=== PATIENT | female | born 1995 | race Caucasian/White ===

== ENCOUNTER 2023-07-14 11:43 | Outpatient (OUT) | payer MEDICAID, SELFPAY ==
[2023-07-14 12:17] LABS: Basophils Absolute Auto 0.1 10^3/uL (0.0-0.1); Basophils Percent Auto 0.6 % (0.2-2.0); Eosinophils Absolute Auto 0.1 10^3/uL (0.0-0.7); Eosinophils Percent Auto 0.7 % (0.9-7.0); Hematocrit 42.6 % (36.0-48.0); Hemoglobin 14.4 g/dL (12.0-16.0); Immature Granulocytes Abs Auto 0.02 10^3/uL (0.00-0.03); Immature Granulocytes Pct Auto 0.2 % (0.0-0.5); Lymphocytes Absolute Auto 3.6 10^3/uL (1.2-3.8); Lymphocytes Percent Auto 35.7 % (20.5-60.0); Mean Corpuscular HGB Conc 33.8 g/dL (29.9-35.2); Mean Corpuscular Hemoglobin 33.1 pg (26.7-34.0); Mean Corpuscular Volume 97.9 fL (81.0-99.0); Mean Platelet Volume 8.8 fL (9.5-13.5); Monocytes Absolute Auto 0.5 10^3/uL (0.3-0.8); Monocytes Percent Auto 4.9 % (1.7-12.0); Neutrophils Absolute Auto 5.9 10^3/uL (1.4-6.5); Neutrophils Percent Auto 57.9 % (43.0-75.0); Platelet Count 265 10^3/uL (150-450); Red Blood Count 4.35 10^6/uL (4.20-5.40); Red Cell Distribution Width 11.7 % (11.0-15.0); White Blood Count 10.1 10^3/uL (4.0-11.0)
[2023-07-14 12:40] LABS: Estimated Average Glucose 108 mg/dL; Glycohemoglobin A1C 5.4 % (4.5-6.2)
[2023-07-14 13:07] LABS: Alanine Aminotransferase 31 U/L (14-59); Albumin Globulin Ratio 0.8; Albumin Level 3.6 g/dL (3.4-5.0); Alkaline Phosphatase 53 U/L (46-116); Anion Gap 16.1; Aspartate Amino Transferase 17 U/L (15-37); BUN Creatinine Ratio 13.2; Bilirubin Total 0.2 mg/dL (0.2-1.0); Calcium 8.5 mg/dL (8.5-10.1); Carbon Dioxide 26.6 mmol/L (21.0-32.0); Chloride 103 mmol/L (98-107); Estimated GFR (African America >60 (>=60); Estimated GFR (Non-African Ame >60 (>=60); Globulin 4.3 g/dL; Glucose 93 mg/dL (74-106); Potassium 4.7 mmol/L (3.5-5.1); Sodium 141 mmol/L (136-145); Thyroid Stimulating Hormone 0.917 uIU/mL (0.358-3.740); Total Protein 7.9 g/dL (6.4-8.2)
[2023-07-15 11:09] LABS: Insulin 43.1 uIU/mL (2.6-24.9)
== END 2023-07-14 11:44 | disposition home or self-care (01) ==
PROVIDERS: PCP Family Medicine; Visit Provider Family Medicine
DX: K58.9 Irritable bowel syndrome, unspecified (principal); R73.09 Other abnormal glucose
CPT/HCPCS: 36415; 80053; 83036; 83525; 84436; 84443; 84481; 85025

== ENCOUNTER 2023-09-26 11:00 | Outpatient (REF) | payer MEDICAID, SELFPAY ==
--- OUTSIDE RECORDS SUMMARY | 2023-09-27 16:28 | XMS_ITS | CCD ---
Author Name Unknown Address [address] [place] [address] [place] [id number] Organization [facility] Care Team Providers Care Entry Level Web Developer Name Role Phone RICKY ., DR MENDEZ Attending Unavailable RICKY ., DR MENDEZ Consulting Unavailable RICKY Stout, DR MENDEZ Primary Care Unavailable RICKY Stout, DR MENDEZ Admitting Unavailable Luis DAY Attending Unavailable Vanessa García MD Primary Care Provider [phone] Medications Current Medications Medication Drug Class(es) Dates Sig (Normalized) Sig (Original) citalopram 10 mg oral tablet (2 sources) Serotonin Reuptake Inhibitor take 1 tablet by mouth in the morning citalopram (CeleXA) 10 mg tablet Take 1 tablet (10 mg total) by mouth in the morning. 0 Active Ethinyl Estradiol / Levonorgestrel (3 sources) Progestin, Estrogen, Progestin-containi ng Intrauterine Device Start: 09-25-2023 take 1 tablet by mouth once in the morning levonorgestreL-et hinyl estrad (AVIANE,ALESSE,LE SSINA) 0.1-20 mg-mcg per tablet Indications: Encounter for control pills maintenance Take 1 tablet by mouth in the morning. 28 tablet 0 09/25/2023 Active Start: 09-15-2022 End: 09-25-2023 take 1 tablet by mouth once in the morning levonorgestreL-ethinyl estrad (AVIANE,ALESSE,LESSINA) 0.1-20 mg-mcg per tablet Indications: Encounter for control pills maintenance Take 1 tablet by mouth in the morning. 28 tablet 12 09/15/2022 09/25/2023 Discontinued (Reorder) hydrOXYzine hydrochloride 25 mg oral tablet (2 sources) Antihistamine Start: 08-12-2022 hydrOXYzine (A TARAX) 25 mg tablet TAKE 1 TABLET BY MOUTH EVERY 6 TO 8 HOURS 0 08/12/2022 Active Problems Active Problems Problem Classification Problem Date Documented Date Episodic/Chronic Contraceptive and procreative management (1 source) Oral contraception status; Translations: [Encounter for surveillance of contraceptive pills] 09-25-2023 Episodic Deficiency and other anemia (1 source) Anemia, unspecified; Translations: [ANEMIA UNSPECIFIED] Onset: 01-03-2023 Episodic Diabetes mellitus without complication (1 source) Other abnormal glucose; Translations: [OTHER ABNORMAL GLUCOSE] Onset: 01-03-2023 Episodic Other nutritional; endocrine; and metabolic disorders (2 sources) Body mass index 40+ - severely obese; Translations: [Body mass index (BMI) 40.0-44.9, adult] Onset: 09-15-2022 09-15-2022 Chronic Past or Other Problems Problem Classification Problem Date Documented Da te Episodic/Chronic Unclassified (2 sources) Onset: 09-15-2022 09-15-2022 Results Test Name Value Interpretation Reference Range Facil ity Physician Referralon 024 Physician Referral [id number] #[id number] Normal [facility] INSULINon 12-30-2022 Insulin 142.0 uIU/mL Critically high 2.6-24.9 [facility] Comment on above: Performed By: #### I NSULIN #### [facility] [address] [place] [address] Dr. Jason Herrera CBC AUTO DIFFon 12-28-2022 BASO # 0.1 103/ul Normal 0.0-0.1 [facility] Comment on above: Performed By: #### C BC #### [facility] [address] [address] [address] Jason Herrera Basophils/100 WBC (Bld) 0.6 % Normal 0.2-2.0 [facility] Comment on above: Performed By: #### C BC #### [facility] [address] [address] [address] Jason Herrera EO # 0.1 103/ul Normal 0.0-0.7 [facility] Comment on above: Performed By: #### C BC #### [facility] [address] [place] [address] Dr. Jason Herrera Eosinophils/100 WBC (Bld) 0.6 % Critically low 0.9-7.0 [facility] Comment on above: Performed By: #### C BC #### [facility] [address] [place] [address] Dr. Jason Herrera Erythrocyte distribution width (RBC) [Ratio] 11.9 % Normal 11.0-15.0 [facility] Comment on above: Performed By: #### C BC #### [facility] [address] [place] [address] Dr. Jason Herrera Hematocrit (Bld) [Volume fraction] 42.4 % Normal 36.0-48.0 [facility] Comment on above: Performed By: #### C BC #### [facility] [address] [place] [address] Dr. Jason Herrera Hemoglobin (Bld) [Mass/Vol] 14.5 g/dL Normal 12.0-16.0 [facility] Comment on above: Performed By: #### C BC #### [facility] [address] [place] [address] Dr. Jason Herrera IG # 0.02 10e3/ul Normal 0.00-0.03 [facility] Comment on above: Performed By: #### C BC #### [facility] [address] [place] [address] Dr. Jason Herrera IG % 0.2 % Normal 0.0-0.5 [facility] Comment on above: Performed By: #### C BC #### [facility] [address] [place] [address] Dr. Jason Herrera LYMPH # 3.2 103/ul Normal 1.2-3.8 [facility] Comment on above: Performed By: #### C BC #### [facility] [address] [place] [address] Dr. Jason Herrera Lymphocytes/100 WBC (Bld) 35.7 % Normal 20.5-60.0 [facility] Comment on above: Performed By: #### C BC #### [facility] [address] [place] [address] Dr. Jason Herrera MANUAL DIFF REQ NO Normal [facility] Comment on above: Performed By: #### C BC #### [facility] [address] [place] [address] Dr. Jason Herrera MCH (RBC) [Entitic mass] 32.4 pg Normal 26.7-34.0 [facility] Comment on above: Performed By: #### C BC #### [facility] [address] [place] [address] Dr. Jason Herrera MCHC (RBC) [Mass/Vol] 34.2 g/dL Normal 29.9-35.2 [facility] Comment on above: Performed By: #### C BC #### [facility] [address] [place] [address] Dr. Jason Hererra MCV (RBC) [Entitic vol] 94.9 fL Normal 81.0-99.0 [facility] Comment on above: Performed By: #### C BC #### [facility] [address] [place] [address] Dr. Jason Herrera MONO # 0.4 103/ul Normal 0.3-0.8 [facility] Comment on above: Performed By: #### C BC #### [facility] [address] [place] [address] Dr. Jason Herrera Monocytes/100 WBC (Bld) 4.7 % Normal 1.7-12.0 [facility] Comment on above: Performed By: #### C BC #### [facility] [address] [place] [address] Dr. Jason Herrera NEUT # 5.3 103/ul Normal 1.4-6.5 [facility] Comment on above: Performed By: #### C BC #### [facility] [address] [place] [address] Dr. Jason Herrera Neutrophils/100 WBC (Bld) 58.2 % Normal 43.0-75.0 [facility] Comment on above: Performed By: #### C BC #### [facility] [address] [address] [address] Jason Herrera Platelet mean volume (Bld) [Entitic vol] 8.6 fL Critically low 9.5-13.5 [facility] Comment on above: Performed By: #### C BC #### [facility] [address] [address] [address] Jason Herrera PLT 285 103/ul Normal 150-450 [facility] Comment on above: Performed By: #### C BC #### [facility] [address] [address] [address] Jason Herrera RBC 4.47 106/ul Normal 4.20-5.40 [facility] Comment on above: Performed By: #### C BC #### [facility] [address] [place] [address] Dr. Jason Herrera WBC 9.1 103/ul Normal 4.0-11.0 [facility] Comment on above: Performed By: #### C BC #### [facility] [address] [place] [address] Dr. Jason Herrera FREE THYROXINE INDEX T7on FTI 3.45 Normal 1.30-4.50 [facility] Comment on above: Performed By: #### L IPID, CMP, TSH, T7 #### [facility] [address] [place] [address] Dr. Jason Herrera T3U 29.0 % Critically low 30.0-39.0 [facility] Comment on above: Performed By: #### L IPID, CMP, TSH, T7 #### [facility] [address] [address] [address] Jason Herrera T4 [Mass/Vol] 11.90 ug/dL Normal 4.80-13.90 [facility] Comment on above: Performed By: #### L IPID, CMP, TSH, T7 #### [facility] [address] [place] [address] Dr. Jason Herrera GLYCOHEMOGLOBIN A1Con 2022 ADA RECOMMENDATION SEE BELOW Normal [facility] Comment on above: Result Comment: ADA RECOMMENDED LIMIT 4.0 - 6.0 ADA THERAPEUTIC TARGET < 7.0 ACTION SUGGESTED > 7.0 Performed By: #### A 1C #### [facility] [address] [place] [address] Dr. Jason Herrera Glucose [Mass/Vol] 105 mg/dL Normal [facility] Comment on above: Performed By: #### A 1C #### [facility] [address] [address] [address] Jason Herrera HbA1c (Bld) [Mass fraction] 5.3 % Normal 4.5-6.2 [facility] Comment on above: Performed By: #### A 1C #### [facility] [address] [place] [address] Dr. Jason Herrera IRONon 12-28-2022 Iron [Mass/Vol] 114.0 ug/dL Normal 50.0-170.0 [facility] Comment on above: Performed By: #### I TARYN #### [facility] [address] [place] [address] Dr. Jason Herrera LIPID PROFILEon 12-28-2022 CHOL-HDL RATIO NORM SEE BELOW Normal [facility] Comment on above: Result Comment: 3.3 - 4.4 LOW RISK 4.4 - 7.1 AVERAGE RISK 7.1 - 11.0 MODERATE RISK >11.0 HIGH RISK Performed By: #### L IPID, CMP, TSH, T7 #### [facility] [address] [place] [address] Dr. Jason Herrera Cholesterol [Mass/Vol] 172 mg/dL Normal <=200 [facility] Comment on above: Performed By: #### L IPID, CMP, TSH, T7 #### [facility] [address] [address] [address] Jason Herrera Cholesterol in HDL [Mass/Vol] 34 mg/dL Critically low 40-60 [facility] Comment on above: Performed By: #### L IPID, CMP, TSH, T7 #### [facility] [address] [address] [address] Jason Herrera Cholesterol in LDL [Mass/Vol] 105.6 mg/dL Normal [facility] Comment on above: Performed By: #### L IPID, CMP, TSH, T7 #### [facility] [address] [address] [address] Jason Herrera Cholesterol.total/Cho lesterol in HDL [Mass ratio] 5.1 {ratio} Normal [facility] Comment on above: Performed By: #### L IPID, CMP, TSH, T7 #### [facility] [address] [address] [address] Jason Herrera HDL NORMAL > or = 60 mg/dl - LOW CARDIOVASCULAR RISK <40 mg/dl - HIGH CARDIOVASCULAR RISK Normal [facility] Comment on above: Performed By: #### L IPID, CMP, TSH, T7 #### [facility] [address] [address] [address] Jason Herrera LDL CALC NORMAL SEE BELOW Normal [facility] Comment on above: Result Comment: <100 mg/dl OPTIMAL 100 - 129 mg/dl NEAR OR ABOVE OPTIMAL 130 - 159 mg/dl BORDERLINE HIGH 160 - 189 mg/dl HIGH >190 mg/dl VERY HIGH Performed By: #### L IPID, CMP, TSH, T7 #### [facility] [address] [address] [address] Jason Herrera Triglyceride [Mass/Vol] 162 mg/dL Critically high <=150 [facility] Comment on above: Performed By: #### L IPID, CMP, TSH, T7 #### [facility] [address] [address] [address] Jason Herrera VLDL CALC 32.4 mg/dL Normal [facility] Comment on above: Performed By: #### L IPID, CMP, TSH, T7 #### [facility] [address] [address] [address] Jason Herrera PROF 14(COMP METB)on 023 Albumin [Mass/Vol] 3.9 g/dL Normal 3.4-5.0 [facility] Comment on above: Performed By: #### L IPID, CMP, TSH, T7 #### [facility] [address] [address] [address] Jason Herrera Albumin/Globulin [Mass ratio] 0.9 {ratio} Normal [facility] Comment on above: Performed By: #### L IPID, CMP, TSH, T7 #### [facility] [address] [place] [address] Dr. Jason Herrera ALP [Catalytic activity/Vol] 48 U/L Normal 46-116 [facility] Comment on above: Performed By: #### L IPID, CMP, TSH, T7 #### [facility] [address] [address] [address] Jason Herrera ALT [Catalytic activity/Vol] 58 U/L Normal 14-59 [facility] Comment on above: Performed By: #### L IPID, CMP, TSH, T7 #### [facility] [address] [place] [address] Dr. Jason Herrera Anion gap [Moles/Vol] 12.4 mmol/L Normal [facility] Comment on above: Performed By: #### L IPID, CMP, TSH, T7 #### [facility] [address] [place] [address] Dr. Jason Herrera AST [Catalytic activity/Vol] 35 U/L Normal 15-37 [facility] Comment on above: Performed By: #### L IPID, CMP, TSH, T7 #### [facility] [address] [place] [address] Dr. Jason Herrera Bilirubin [Mass/Vol] 0.2 mg/dL Normal 0.2-1.0 [facility] Comment on above: Performed By: #### L IPID, CMP, TSH, T7 #### [facility] [address] [place] [address] Dr. Jason Herrera Calcium [Mass/Vol] 9.0 mg/dL Normal 8.5-10.1 [facility] Comment on above: Performed By: #### L IPID, CMP, TSH, T7 #### [facility] [address] [place] [address] Dr. Jason Herrera Chloride [Moles/Vol] 107 mmol/L Normal 98-107 [facility] Comment on above: Performed By: #### L IPID, CMP, TSH, T7 #### [facility] [address] [address] [address] Jason Herrera CO2 [Moles/Vol] 25.9 mmol/L Normal 21.0-32.0 [facility] Comment on above: Performed By: #### L IPID, CMP, TSH, T7 #### [facility] [address] [address] [address] Jason Herrera Creatinine [Mass/Vol] 0.72 mg/dL Normal 0.55-1.02 [facility] Comment on above: Performed By: #### L IPID, CMP, TSH, T7 #### [facility] [address] [address] [address] Jason Herrera EGFR-AF BAHAMIAN >60 Normal >=60 [facility] Comment on above: Performed By: #### L IPID, CMP, TSH, T7 #### [facility] [address] [address] [address] Jason Herrera EGFR-NON AF BAHAMIAN >60 Normal >=60 [facility] Comment on above: Performed By: #### L IPID, CMP, TSH, T7 #### [facility] [address] [address] [address] Jason Herrera Globulin (S) [Mass/Vol] 4.3 g/dL Normal [facility] Comment on above: Performed By: #### L IPID, CMP, TSH, T7 #### [facility] [address] [address] [address] Jason Herrera Glucose [Mass/Vol] 103 mg/dL Normal 74-106 [facility] Comment on above: Performed By: #### L IPID, CMP, TSH, T7 #### [facility] [address] [address] [address] Jason Herrera Potassium [Moles/Vol] 4.3 mmol/L Normal 3.5-5.1 [facility] Comment on above: Performed By: #### L IPID, CMP, TSH, T7 #### [facility] [address] [address] [address] Jason Herrera Protein [Mass/Vol] 8.2 g/dL Normal 6.4-8.2 [facility] Comment on above: Performed By: #### L IPID, CMP, TSH, T7 #### [facility] [address] [address] [address] Jason Herrera Sodium [Moles/Vol] 141 mmol/L Normal 136-[address] [facility] Comment on above: Performed By: #### L IPID, CMP, TSH, T7 #### [facility] [address] [address] [address] Jason Herrera Urea nitrogen [Mass/Vol] 9.0 mg/dL Normal 7.0-18.0 [facility] Comment on above: Performed By: #### L IPID, CMP, TSH, T7 #### [facility] [address] [place] [address] Dr. Jason Herrera Urea nitrogen/Creatinine [Mass ratio] 12.5 mg/mg Normal [facility] Comment on above: Performed By: #### L IPID, CMP, TSH, T7 #### [facility] [address] [address] [address] Jason Herrera TSHon 12-28-2022 TSH 0.365 uIU/mL Normal 0.358-3.740 [facility] Comment on above: Performed By: #### L IPID, CMP, TSH, T7 #### [facility] [address] [place] [address] Dr. Jason Herrera Encounters Encounter Date Encounter Type Care Provider Facility Start: 10-24-2023 ambulatory Luis DAY Facility : [facility] Start: 09-25-2023 Orders Only Selam Thompson CRYSTAL ATTACHER-MATERIALS AND CORROSION ENGINEER Work Phone: [facility] Comment on above: Encounter for control pills maintenance Start: 09-21-2023 ambulatory Luis DAY Facility: [facility] Start: 09-19-2023 ambulatory Luis DAY Facility:[facility] Start: 01-03-2023 Encounter for genera l adult medical examination without abnormal findings DR VANESSA GARCÍA . [facility] Start: 12-28-2022 End: 12-29-[address] VANESSA GARCÍA . Facility: Start: 12-28-2022 End: 12-29-2022 Encounter for general adult medical examination without abnormal findings DR VANESSA GARCÍA . Facility:[facility] Procedures Date Procedure Procedure Detail Performing Clinician Start: 03-30-2021 Microscopic observat ion [Identifier] in Cervix by Cyto stain Selam Thompson APRN-MATERIALS AND CORROSION ENGINEER Work Phone: Plan of Treatment Date Care Activity Detail Author Start: 08-01-2033 DTaP,Tdap and Td Vaccines (7 - Td or Tdap) DTaP,Tdap and Td Vaccines (7 - Td or Tdap) [facility] Start: 08-01-2024 Adult BMI Screening Adult BMI Screen ing [facility] Start: 08-01-2024 Tobacco Screening Tobacco Screening [facility] Start: 03-30-2024 Screening for malign ant neoplasm of cervix Pap Smear [facility] Start: 09-15-2023 Adult BMI Follow Up Plan Adult BMI Follow Up Plan [facility] Start: 04-28-2023 Influenza vaccination Influenza Vacc ine [facility] Start: 2007 Depression Screening Depression Scre ening [facility] Immunizations Immunization Date Immunization Notes Care Provider Fa cility 08-01-2023 tetanus toxoid, redu catie diphtheria toxoid, and acellular pertussis vaccine, adsorbed Selam Thompson APRN-MATERIALS AND CORROSION ENGINEER Work Phone: [facility] 05-26-2021 influenza virus vaccine, unspecified formulation Selam Thompson APRN-MATERIALS AND CORROSION ENGINEER Work Phone: [facility] Payers Date Payer Category Payer Medicaid [employer] [facility] MEDICAID [id number] 2022-Present [phone] [address] [address] [place] [address] [id number] 1995 Unknown [id number] 1995 Unknown [id number] 1995 Unknown [id number] 1959 Private Health Insurance [id number] Social History Date Type Detail Facility [facility]: [facility] Start: 09-15-2022 Tobacco use and exposure Smokeless tobacco non-user [facility] Start: 08-01-2023 Alcohol intake Current drinke r of alcohol (finding) [facility] Start: 10-07-2020 End: 08-01-2023 History of Social function [facility] Start: 10-07-2020 End: 08-01-2023 Tobacco use panel [facility] Childcare Unknown [facility] Start: 03-30-2021 Alcohol Comment occasionally [facility] Start: 1995 Sex Assigned At Not on file P [facility] Note 09-25-2023 Telephone Encounter - María Cadena - 09/25/2023 3:18 PM ESTTelephone Encounter - JOY Pinedo - 09/25/2023 3:18 PM ESTTelephone Encounter - María Cadena - 09/25/2023 3:18 PM EST Note Date & Type Note Facility 09-25-2023 Miscellaneous Notes Formattin g of this note might be different from the original. Pt is requesting 1 month BC refill. Pt had Annual appointment scheduled with this Office on 09/21/23, but cancelled due to insurance being [id number]. Pt has appointment with new Provider, but not until October. Please advise. Thank you RX sent to pharmacy LVM advising RX sent to Pharmacy. documented in this encounter [facility] Telephone encounter Note 09-25-2023 Telephone Encounter - María Vazquezetz - 09/25/2023 3:18 PM EST Note Date & Type Note Facility 09-25-2023 Telephone encount er Note Pt is requesting 1 month BC refill. Pt had Annual appointment scheduled with this Office on 09/21/23, but cancelled due to insurance being [id number]. Pt has appointment with new Provider, but not until October. Please advise. Thank you [facility] Telephone encounter Note 09-25-2023 Telephone Encounter - JOY Pinedo - 09/25/2023 3:18 PM EST Note Date & Type Note Facility 09-25-2023 Telephone encount er Note RX sent to pharmacy [facility] Telephone encounter Note 09-25-2023 Telephone Encounter - María Cadena - 09/25/2023 3:18 PM EST Note Date & Type Note Facility 09-25-2023 Telephone encount er Note LVM advising RX sent to Pharmacy. [facility] Evaluation note Note Date & Type Note Facility Evaluation note Diagnosis Encounter for control pills maintenance Surveillance of previously prescribed contraceptive pill documented in this encounter [facility] Instructions Note Date & Type Note Facility Instructions Not on filedocumented in this en counter [facility] Summary Purpose Family History No Family History Records FoundNo Family History Records Found Advance Directives No Advanced Directives Records FoundNo Advanced Directives Records Found Additional Source Comments INFORMATION SOURCE (unrecogn ized section and content) DATE CREATED AUTHOR 01/04/2023 [facility] DATE CREATED AUTHOR AUTHOR'S ORGANIZ ATION 09/25/2023 Max Caputo [facility] Care Teams (unrecognized sec tion and content) Entry Level Web Developer Relationship Specialty Start Date End Date Vanessa García MD [address] [place] [address] PCP - General 08/01/23 FOR RECORDS PERTAINING TO PATIENTS WHO ARE OR HAVE BEEN ENROLLED IN A CHEMICAL DEPENDENCY/SUBSTANCEABUSE PROGRAM, SOME INFORMATION MAY BE OMITTED. This clinical summary was aggregated from multiple sources. Caution should be exercised in using it in the provision of clinical care. This summary normalizes information from multiple sources, and as a consequence, information in this document may materially change the coding, format and clinical context of patient data. In addition, data may be omitted in some cases. CLINICAL DECISIONS SHOULD BE BASED ON THE PRIMARY CLINICAL RECORDS. [facility] [employer] [facility]. provides no warranty or guarantee of the accuracy or completeness of information in this document.
[2023-09-28 15:12] LABS: C. Difficile PCR NEGATIVE (NEGATIVE)
== END 2023-09-26 11:01 | disposition home or self-care (01) ==
LOC: LAB 11:00
PROVIDERS: PCP Family Medicine; Visit Provider Family Medicine
DX: R19.7 Diarrhea, unspecified (principal)
CPT/HCPCS: 87045; 87493

== ENCOUNTER 2023-11-02 19:46 | Outpatient (REF) | payer MEDICAID, SELFPAY ==
--- OUTSIDE RECORDS SUMMARY | 2023-11-02 19:49 | XMS_ITS | CCD ---
Author Name Unknown Address [facility] Con[facility] [address] [place] [address] Organization [facility] Care Team Providers Care Calculus Professor Name Role Phone RICKY ., DR MENDEZ Attending Unavailable RICKY ., DR MENDEZ Consulting Unavailable RICKY Stout, DR MENDEZ Primary Care Unavailable RICKY Stout, DR MENDEZ Admitting Unavailable Vanessa García MD Primary Care Provider [phone] Vanessa García Primary Care Physician Luis DAY Attending Unavailable Luis DAY Attending Unavailable Allergies Allergy Classification Reported Allergen(s) Allergy Type Date of Onset Reaction(s) Facility (1 source) No Known Medication Allergies; Translations: [No Known Medication Allergies] Propensity to adverse reactions (disorder) [facility] Repository Medications Current Medications Medication Drug Class(es) Dates Sig (Normalized) Sig (Original) Ethinyl Estradiol / Levonorgestrel (3 sources) Progestin, [...] 28 tablet 12 09/15/2022 09/25/2023 Discontinued (Reorder) Completed/Discontinued Medications Medication Drug Class(es) Dates Sig (Normalized) Sig (Original) citalopram 10 mg oral tablet (3 sources) Serotonin Reuptake Inhibitor Start: 12-27-2022 take 1 tablet by mouth once daily hydrOXYzine hydrochloride 25 mg oral tablet (3 sources) Antihistamine Start: 10-09-2023 take 1 tablet by mouth every eight hours as needed Start: 08-12-2022 hydrOXYzine (A TARAX) 25 mg tablet TAKE 1 TABLET BY MOUTH EVERY 6 TO 8 HOURS 0 08/12/2022 Active Problems Active Problems Problem Classification Problem Date Documented Da te Episodic/Chronic Allergic reactions (1 source) Eczema 10-09-2023 Episodic Contraceptive and procreative management (1 source) Oral contraception status; Translations: [Encounter for surveillance of contraceptive pills] 09-25-2023 Episodic Deficiency and other anemia (1 source) Anemia, unspecified; Translations: [ANEMIA UNSPECIFIED] Onset: 01-03-2023 Episodic Diabetes mellitus without complication (1 source) Other abnormal glucose; Translations: [OTHER ABNORMAL GLUCOSE] Onset: 01-03-2023 Episodic Other gastrointestinal disorders (1 source) Irritable bowel syndrome 10-09-2023 Chronic Other gastrointestinal disorders (2 sources) Diarrhea; Translations: [Diarrhea, unspecified] Onset: 10-24-2023 Episodic Other gastrointestinal disorders (1 source) Loose stool 10-09-2023 Episodic Other nutritional; endocrine; and metabolic disorders (3 sources) Body mass index 40+ - severely obese; Translations: [Body mass index (BMI) 40.0-44.9, adult] Onset: 09-15-2022 09-15-2022 Chronic Other nutritional; endocrine; and metabolic disorders (1 source) Morbid obesity 10-24-2023 Chronic Other upper respiratory disease (1 source) Seasonal allergic rhinitis 10-09-2023 Chronic Past or Other Problems Problem Classification Problem Date Documented Da te Episodic/Chronic Unclassified (2 sources) Onset: 09-15-2022 09-15-2022 Results Test Name Value Interpretation Reference Range Facil ity Consent for Procedure/Surger yon 10-25-2023 Consent for Procedure/Surgery [id number] 2#1.00TIFF Normal [facility] Facesheeton 10-25-2023 Facesheet [id number] 4#1.00TIFF [facility] Ambulatory Visit Summaryon 0 10-24-2023 Ambulatory Visit Summary WILLIAMS MOSELEY :1995 Visit Date:10/24/2023 Ambulatory Visit Instructions Your Care Team Attending Physician - SHAY GILMORE, Luis Grullon Primary Care Physician - Vanessa García MD This Is Your Medications List Contact prescribing physician if questions or concerns citalopram (CeleXA 10 mg Tab) hydrOXYzine (hydrOXYzine hydrochloride 25 mg Tab) Procedures Performed None. Discharge Vitals Heart Rate (Peripheral) 72 Respiratory Rate 16 Blood Pressure 124/84 Height 157.48 cm Height 62 in Weight 109 kg Weight 239.8 lb BMI 43.95 Medications What How Much When Instructions Unchanged citalopram (CeleXA 10 mg Tab) 1 Tablets By Mouth Every day 1 Unknown, 0 Refill(s) Contact prescribing physician if questions or concerns Unchanged hydrOXYzine (hydrOXYzine hydrochloride 25 mg Tab) 1 Tablets By Mouth Every 8 hours as needed for as needed for anxiety 1 Unknown, 0 Refill(s) Contact prescribing physician if questions or concerns Medications and Immunizations Administered Not Given influenza virus vaccine, inactivated, Patient Refuses Allergies No Known Allergies No Known Medication Allergies Problems Ongoing - Any problem that you are currently receiving treatment for. BMI 40.0-44.9, adult Eczema Irritable bowel syndrome Loose stools Morbid obesity Seasonal allergic rhinitis Patient Survey You may receive a survey via text or e-mail asking about your office visit. Please share your experience with us by completing your survey. We appreciate your feedback and thank you for choosing us for your care. Normal [facility] Lab Reportson 10-10-2023 Lab Reports [id number] #1.00TIFF [facility] Physician Referralon 024 Physician Referral [id number] #1.00TIFF [facility] INSULINon 12-30-2022 Insulin 142.0 uIU/mL Critically high 2.6-24.9 [facility] Comment on above: Performed By: #### I NSULIN #### [facility] [address] [address] [address] Jason Herrera CBC AUTO DIFFon 12-28-2022 BASO # 0.1 103/ul Normal 0.0-0.1 [facility] Comment on above: Performed By: #### C BC #### [facility] [address] [place] [address] Dr. Jason Herrera Basophils/100 WBC (Bld) 0.6 % Normal 0.2-2.0 [facility] Comment on above: Performed By: #### C BC #### [facility] [address] [place] [address] Dr. Jason Herrera EO # 0.1 103/ul Normal 0.0-0.7 [facility] Comment on above: Performed By: #### C BC #### [facility] [address] [place] [address] Dr. Jason Herrera Eosinophils/100 WBC (Bld) 0.6 % Critically low 0.9-7.0 [facility] Comment on above: Performed By: #### C BC #### [facility] [address] [place] [address] Dr. Jason Herrera Erythrocyte distribution width (RBC) [Ratio] 11.9 % Normal 11.0-15.0 [facility] Comment on above: Performed By: #### C BC #### [facility] [address] [place] [address] Dr. Jason Herrera Hematocrit (Bld) [Volume fraction] 42.4 % Normal 36.0-48.0 [facility] Comment on above: Performed By: #### C BC #### [facility] [address] [place] [address] Dr. Jason Herrera Hemoglobin (Bld) [Mass/Vol] 14.5 g/dL Normal 12.0-16.0 [facility] Comment on above: Performed By: #### C BC #### [facility] [address] [place] [address] Dr. Jason Herrera IG # 0.02 10e3/ul Normal 0.00-0.03 [facility] Comment on above: Performed By: #### C BC #### [facility] [address] [place] [address] Dr. Jason Herrera IG % 0.2 % Normal 0.0-0.5 [facility] Comment on above: Performed By: #### C BC #### [facility] [address] [place] [address] Dr. Jason Herrera LYMPH # 3.2 103/ul Normal 1.2-3.8 [facility] Comment on above: Performed By: #### C BC #### [facility] [address] [place] [address] Dr. Jason Herrera Lymphocytes/100 WBC (Bld) 35.7 % Normal 20.5-60.0 [facility] Comment on above: Performed By: #### C BC #### [facility] [address] [place] [address] Dr. Jason Herrera MANUAL DIFF REQ NO Normal [facility] Comment on above: Performed By: #### C BC #### [facility] [address] [place] [address] Dr. Jason Herrera MCH (RBC) [Entitic mass] 32.4 pg Normal 26.7-34.0 [facility] Comment on above: Performed By: #### C BC #### [facility] [address] [place] [address] Dr. Jason Herrera MCHC (RBC) [Mass/Vol] 34.2 g/dL Normal 29.9-35.2 [facility] Comment on above: Performed By: #### C BC #### [facility] [address] [place] [address] Dr. Jason Herrera MCV (RBC) [Entitic vol] 94.9 fL Normal 81.0-99.0 [facility] Comment on above: Performed By: #### C BC #### [facility] [address] [place] [address] Dr. aJson Herrera MONO # 0.4 103/ul Normal 0.3-0.8 [facility] Comment on above: Performed By: #### C BC #### [facility] [address] [place] [address] Dr. Jason Herrera Monocytes/100 WBC (Bld) 4.7 % Normal 1.7-12.0 [facility] Comment on above: Performed By: #### C BC #### [facility] [address] [place] [address] Dr. Jason Herrera NEUT # 5.3 103/ul Normal 1.4-6.5 [facility] Comment on above: Performed By: #### C BC #### [facility] [address] [place] [address] Dr. Jason Herrera Neutrophils/100 WBC (Bld) 58.2 % Normal 43.0-75.0 [facility] Comment on above: Performed By: #### C BC #### [facility] [address] [place] [address] Dr. Jason Herrera Platelet mean volume (Bld) [Entitic vol] 8.6 fL Critically low 9.5-13.5 [facility] Comment on above: Performed By: #### C BC #### [facility] [address] [place] [address] Dr. Jason Herrera PLT 285 103/ul Normal 150-450 [facility] Comment on above: Performed By: #### C BC #### [facility] [address] [place] [address] Dr. Jason Herrera RBC 4.47 106/ul Normal 4.20-5.40 [facility] Comment on above: Performed By: #### C BC #### [facility] [address] [place] [address] Dr. Jason Herrera WBC 9.1 103/ul Normal 4.0-11.0 [facility] Comment on above: Performed By: #### C BC #### [facility] [address] [place] [address] Dr. Jason Herrera FREE THYROXINE INDEX T7on FTI 3.45 Normal 1.30-4.50 [facility] Comment on above: Performed By: #### L IPID, CMP, TSH, T7 #### [facility] [address] [place] [address] Dr. Jason Herrera T3U 29.0 % Critically low 30.0-39.[address] [facility] Comment on above: Performed By: #### L IPID, CMP, TSH, T7 #### [facility] [address] [address] [address] Jason Herrera T4 [Mass/Vol] 11.90 ug/dL Normal 4.80-13.[address] [facility] Comment on above: Performed By: #### L IPID, CMP, TSH, T7 #### [facility] [address] [address] [address] Jason Herrera GLYCOHEMOGLOBIN A1Con 2022 ADA RECOMMENDATION SEE BELOW Normal [facility] Comment on above: Result Comment: ADA RECOMMENDED LIMIT 4.0 - 6.0 ADA THERAPEUTIC TARGET < 7.0 ACTION SUGGESTED > 7.0 Performed By: #### A 1C #### [facility] [address] [place] [address] Dr. Jason Herrera Glucose [Mass/Vol] 105 mg/dL Normal [facility] Comment on above: Performed By: #### A 1C #### [facility] [address] [place] [address] Dr. Jason Herrera HbA1c (Bld) [Mass fraction] 5.3 % Normal 4.5-6.2 [facility] Comment on above: Performed By: #### A 1C #### [facility] [address] [place] [address] Dr. Jason Herrera IRONon 12-28-2022 Iron [Mass/Vol] 114.0 ug/dL Normal 50.0-170.0 [facility] Comment on above: Performed By: #### I TARYN #### [facility] [address] [place] [address] Dr. Jason Herrera LIPID PROFILEon 12-28-2022 CHOL-HDL RATIO NORM SEE BELOW Normal [facility] Comment on above: Result Comment: 3.3 - 4.4 LOW RISK 4.4 - 7.1 AVERAGE RISK 7.1 - 11.0 MODERATE RISK >11.0 HIGH RISK Performed By: #### L IPID, CMP, TSH, T7 #### [facility] [address] [address] [address] Jason Herrera Cholesterol [Mass/Vol] 172 mg/dL Normal <=200 [facility] Comment on above: Performed By: #### L IPID, CMP, TSH, T7 #### [facility] [address] [address] [address] Jason Herrera Cholesterol in HDL [Mass/Vol] 34 mg/dL Critically low 40-60 [facility] Comment on above: Performed By: #### L IPID, CMP, TSH, T7 #### [facility] [address] [address] [address] Jason Herrera Cholesterol in LDL [Mass/Vol] 105.6 mg/dL Normal [facility] Comment on above: Performed By: #### L IPID, CMP, TSH, T7 #### [facility] [address] [address] [address] Jason Herrera Cholesterol.total/Cho lesterol in HDL [Mass ratio] 5.1 {ratio} Normal [facility] Comment on above: Performed By: #### L IPID, CMP, TSH, T7 #### [facility] [address] [address] [address] Jason Herrera HDL NORMAL > or = 60 mg/dl - LOW CARDIOVASCULAR RISK <40 mg/dl - HIGH CARDIOVASCULAR RISK Normal [facility] Comment on above: Performed By: #### L IPID, CMP, TSH, T7 #### [facility] [address] [address] [address] Jason Herrera LDL CALC NORMAL SEE BELOW Normal [facility] Comment on above: Result Comment: <100 mg/dl OPTIMAL 100 - 129 mg/dl NEAR OR ABOVE OPTIMAL 130 - 159 mg/dl BORDERLINE HIGH 160 - 189 mg/dl HIGH >190 mg/dl VERY HIGH Performed By: #### L IPID, CMP, TSH, T7 #### [facility] [address] [address] [address] Jason Herrera Triglyceride [Mass/Vol] 162 mg/dL Critically high <=150 [facility] Comment on above: Performed By: #### L IPID, CMP, TSH, T7 #### [facility] [address] [address] [address] Jason Herrera VLDL CALC 32.4 mg/dL Normal [facility] Comment on above: Performed By: #### L IPID, CMP, TSH, T7 #### [facility] [address] [place] [address] Dr. Jason Herrera PROF 14(COMP METB)on 023 Albumin [Mass/Vol] 3.9 g/dL Normal 3.4-5.0 [facility] Comment on above: Performed By: #### L IPID, CMP, TSH, T7 #### [facility] [address] [place] [address] Dr. Jason Herrera Albumin/Globulin [Mass ratio] 0.9 {ratio} Normal [facility] Comment on above: Performed By: #### L IPID, CMP, TSH, T7 #### [facility] [address] [place] [address] Dr. Jason Herrera ALP [Catalytic activity/Vol] 48 U/L Normal 46-116 [facility] Comment on above: Performed By: #### L IPID, CMP, TSH, T7 #### [facility] [address] [place] [address] Dr. Jason Herrera ALT [Catalytic activity/Vol] 58 U/L Normal 14-59 [facility] Comment on above: Performed By: #### L IPID, CMP, TSH, T7 #### [facility] [address] [place] [address] Dr. Jason Herrera Anion gap [Moles/Vol] 12.4 mmol/L Normal [facility] Comment on above: Performed By: #### L IPID, CMP, TSH, T7 #### [facility] [address] [place] [address] Dr. Jason Herrera AST [Catalytic activity/Vol] 35 U/L Normal 15-37 [facility] Comment on above: Performed By: #### L IPID, CMP, TSH, T7 #### [facility] [address] [place] [address] Dr. Jason Herrera Bilirubin [Mass/Vol] 0.2 mg/dL Normal 0.2-1.0 [facility] Comment on above: Performed By: #### L IPID, CMP, TSH, T7 #### [facility] [address] [place] [address] Dr. Jason Herrera Calcium [Mass/Vol] 9.0 mg/dL Normal 8.5-10.1 [facility] Comment on above: Performed By: #### L IPID, CMP, TSH, T7 #### [facility] [address] [address] [address] Jason Herrera Chloride [Moles/Vol] 107 mmol/L Normal 98-107 [facility] Comment on above: Performed By: #### L IPID, CMP, TSH, T7 #### [facility] [address] [place] [address] Dr. Jason Herrera CO2 [Moles/Vol] 25.9 mmol/L Normal 21.0-32.0 [facility] Comment on above: Performed By: #### L IPID, CMP, TSH, T7 #### [facility] [address] [place] [address] Dr. Jason Herrera Creatinine [Mass/Vol] 0.72 mg/dL Normal 0.55-1.02 [facility] Comment on above: Performed By: #### L IPID, CMP, TSH, T7 #### [facility] [address] [place] [address] Dr. Jason Herrera EGFR-AF HAITIAN >60 Normal >=60 [facility] Comment on above: Performed By: #### L IPID, CMP, TSH, T7 #### [facility] [address] [place] [address] Dr. Jason Herrera EGFR-NON AF HAITIAN >60 Normal >=60 [facility] Comment on above: Performed By: #### L IPID, CMP, TSH, T7 #### [facility] [address] [place] [address] Dr. Jason Herrera Globulin (S) [Mass/Vol] 4.3 g/dL Normal [facility] Comment on above: Performed By: #### L IPID, CMP, TSH, T7 #### [facility] [address] [address] [address] Jason Herrera Glucose [Mass/Vol] 103 mg/dL Normal 74-106 [facility] Comment on above: Performed By: #### L IPID, CMP, TSH, T7 #### [facility] [address] [address] [address] Jason Herrera Potassium [Moles/Vol] 4.3 mmol/L Normal 3.5-5.1 [facility] Comment on above: Performed By: #### L IPID, CMP, TSH, T7 #### [facility] [address] [address] [address] Jason Herrera Protein [Mass/Vol] 8.2 g/dL Normal 6.4-8.2 [facility] Comment on above: Performed By: #### L IPID, CMP, TSH, T7 #### [facility] [address] [address] [address] Jason Hrerera Sodium [Moles/Vol] 141 mmol/L Normal 136-145 [facility] Comment on above: Performed By: #### L IPID, CMP, TSH, T7 #### [facility] [address] [address] [address] Jason Herrera Urea nitrogen [Mass/Vol] 9.0 mg/dL Normal 7.0-18.0 [facility] Comment on above: Performed By: #### L IPID, CMP, TSH, T7 #### [facility] [address] [place] [address] Dr. Jason Herrera Urea nitrogen/Creatinine [Mass ratio] 12.5 mg/mg Normal [facility] Comment on above: Performed By: #### L IPID, CMP, TSH, T7 #### [facility] [address] [place] [address] Dr. Jason Herrera TSHon 12-28-2022 TSH 0.365 uIU/mL Normal 0.358-3.740 [facility] Comment on above: Performed By: #### L IPID, CMP, TSH, T7 #### [facility] [address] [address] [address] Jason Herrera Vital Signs Date Time Vital Sign Value Performing Clinician Rafy hernandez 10-24-2023 13:16-0500 Blood Pressure Location Luis NILL [facility] 10-24-2023 13:16-0500 Diastolic blood pressure 84 mm[Hg] Luis N[facility] 10-24-2023 13:16-0500 Heart rate 72 /min Luis NILL [facility] 10-24-2023 13:16-0500 Respiratory rate 16 /min Luis NILL [facility] 10-24-2023 13:16-0500 Systolic blood pressure 124 mm[Hg] Luis NILL [facility] Encounters Encounter Date Encounter Type Care Provider Facility Start: 10-24-2023 End: 10-25-2023 ambulatory Luis R NILL Facility:[facility] Start: 10-24-2023 End: 10-24-2023 Patient encounter procedure Luis R NILL [facility] Start: 09-25-2023 Orders Only Selam Thompson GRAIN ELEVATOR CLERK-BANNER PAINTER Work Phone: [facility] Comment on above: Encounter for control pills maintenance Start: 09-21-2023 ambulatory Luis NILL Facility:[facility] Start: 09-19-2023 ambulatory Luis NILL Facility:[facility] Start: 01-03-2023 Encounter for genera l adult medical examination without abnormal findings DR VANESSA GARCÍA . [facility] Start: 12-28-2022 End: 12-29-[address] VANESSA GARCÍA . Facility: Start: 12-28-2022 End: 12-29-2022 Encounter for general adult medical examination without abnormal findings DR VANESSA GARCÍA . Facility:[facility] Procedures Date Procedure Procedure Detail Performing Clinician Start: 03-30-2021 Microscopic observat ion [Identifier] in Cervix by Cyto stain Selam Mcconnello GRAIN ELEVATOR CLERK-BANNER PAINTER Work Phone: None (qualifier value) Braulio DAY Plan of Treatment Date Care Activity Detail Author Start: 08-01-2033 DTaP,Tdap and Td Vaccines (7 - Td or Tdap) DTaP,Tdap and Td Vaccines (7 - Td or Tdap) [facility] Start: 08-01-2024 Adult BMI Screening Adult BMI Screen ing [facility] Start: 08-01-2024 Tobacco Screening Tobacco Screening [facility] Start: 03-30-2024 Screening for malign ant neoplasm of cervix Pap Smear [facility] Start: 09-15-2023 Adult BMI Follow Up Plan Adult BMI Follow Up Plan [facility] Start: 04-28-2023 Influenza vaccination Influenza Vacc ine [facility] Start: 2007 Depression Screening Depression Scre ening [facility] Immunizations Immunization Date Immunization Notes Care Provider Fa cility 08-01-2023 tetanus toxoid, reduced diphtheria toxoid, and acellular pertussis vaccine, adsorbed Selam Mcconnello GRAIN ELEVATOR CLERK-BANNER PAINTER Work Phone: [employer] 05-26-2021 influenza virus vaccine, unspecified formulation Selam Mcconnello GRAIN ELEVATOR CLERK-BANNER PAINTER Work Phone: [facility] [employer] NEGATED: Highlighted row has not occurred!10-24-2023 influenza virus vaccine, unspecified formulation Luis DAY [facility] Payers Date Payer Category Payer Medicaid [employer] [place] [employer] [id number] 2022-Present [phone] [address] [address] [place] [address] [id number] 1995 Unknown [id number] 1995 Unknown [id number] 1995 Unknown [id number] 1959 Private Health Insurance [id number] Social History Date Type Detail Facility Start: 09-15-2022 End: 10-24-2023 Tobacco smoking status NHIS Never smoked tobacco [facility] Start: 09-15-2022 Tobacco use and exposure Smokeless tobacco non-user [facility] Start: 08-01-2023 Alcohol intake Current drinke r of alcohol (finding) [facility] Start: 10-07-2020 End: 08-01-2023 History of Social function [facility] Start: 10-07-2020 End: 08-01-2023 Tobacco use panel [facility] Childcare Unknown [facility] Start: 03-30-2021 Alcohol Comment occasionally [facility] Start: 1995 Sex Assigned At Not on file P [facility] Functional Status Date Assessment Result Facility 10-24-2023 Functional Status N/A [facility] kathy [facility] Clinical Note 10-24-2023 Note Date & Type Note Facility 10-24-2023 Note Chief Complaint consultation for loose stools HPI Staff 27 year old female presents on consultation from Dr. García for loose stools. Reports one-two year history of multiple daily loose stools. Reports she has approximately 3 stools daily. Prescribed Xifaxan x 2 weeks which was effective but loose stools returned after stopping medication. Reports several day episode of abdominal cramping prior to bowel movement, this spontaneously resolved and has not returned. Stool studies negative. Denies rectal pain or bleeding. Denies nausea, vomiting or unexplained weight loss. No previous colonoscopy. No known family history of IBD or colon cancer. History of Present Illness 27 yo female with h/o eczema, IBD, referred for frequent loose stools; patient reports several year h/o frequent loose stools, predominantly after eating, initially felt it was worse with fatty foods or carbonated beverages; now seems to by with anything; no blood or mucous; some intermittent crampy abd pain relieved with bms; no N/V; negative stools studies; some improvement after 2 week treatment with Xifaxan; no abdominal operations or previous colonoscopy; no asa or NSAID use; no tobacco use; no fmhx of GI malignancy or IBD. Review of Systems PHQ Score Initial Depression Screen Score: 0 SCORE ROS - Provider Constitutional: no fever, no sweats, no weight loss. Eyes: no glasses, no blurred vision, no visual loss. ENMT: no dentures, no hoarseness, no swallowing difficulties, no hearing loss, no ear infection(s), no nose bleeds. Cardiovascular: normal blood pressure, no chest pain, regular heartbeat, no heart murmur. Respiratory: no shortness of breath, no cough, no asthma, no wheezing. Gastrointestinal: no nausea, no vomiting, no diarrhea, no constipation, no blood in stool, no change in bowel habits, no abdominal pain, no hepatitis. Genitourinary: no kidney stones, no urine infection, no dysuria. Musculoskeletal: no pain, no weakness. Skin: no changing moles, no rash, no skin lumps. Neurologic: no seizures, no epilepsy, no headache. Psychiatric: no emotional or psychiatric problem. Heme/Lymph: no bleeding problems, no anemia, no blood clots, no transfusions. Allergy/Immunologic: no swollen lymph nodes/glands, no IV drug abuse. Other: Additional ROS info: Except as noted in the above Review of Systems and in the History of Present Illness, all other systems have been reviewed and are negative or noncontributory. Physical Exam Vitals & Measurements HR: 72(Peripheral) RR: 16 BP: 124/84 HT: 62 in HT: 157.48 cm WT: 109 kg WT: 239.8 lb BMI: 43.95 HEENT: normal conjunctiva, sclera clear, no scleral icterus, EOM intact, PERRLA, oral mucosa moist without lesions. Neck: trachea midline, no mass, symmetric, no thyromegaly or nodules, no adenopathy Respiratory: lungs CTA, respirations non labored. Cardiovascular: regular rate and rhythm, no murmur, no pedal edema or varicosities. Gastrointestinal: obese, soft, non distended, no tenderness, no masses, no palpable hernias, diastasis recti no, no hepatosplenomegaly; normal bs Lymphatic: no cervical adenopathy, no supraclavicular adenopathy. Musculoskeletal: normal gait, digits and nails without infection, nodes, cyanosis, clubbing. Skin: no rashes, no lesions, no ulcers, no subcutaneous nodules, induration. Psychiatric/Neuro: oriented to time, place, person, judgement normal, affect appropriate for age, insight intact, no focal deficits. Tests: labs reviewed, review of old records completed , Discussed surgical options, risks, and possible complications with patient. Assessment/Plan 1. Frequent loose stools (R19.7: Diarrhea, unspecified) plan colonoscopy under anesthesia, informed consent obtained. Follow-up No qualifying data available Problem List/Past Medical History Ongoing BMI 40.0-44.9, adult Eczema Frequent loose stools Irritable bowel syndrome Loose stools Morbid obesity Seasonal allergic rhinitis Historical No qualifying data Procedure/Surgical History None. Medications CeleXA 10 mg Tab, 10 mg= 1 tab(s), Oral, Daily hydrOXYzine hydrochloride 25 mg Tab, 25 mg= 1 tab(s), Oral, q8hr, PRN Allergies No Known Allergies No Known Medication Allergies Social History Alcohol - Denies Alcohol Use, 10/24/2023 Substance Abuse - Denies Substance Abuse, 10/24/2023 Tobacco Never (less than 100 in lifetime) Tobacco Use:. Never Smokeless Tobacco Use:., 10/24/2023 Family History Family history is negative Immunizations Vaccine Date Status Comments influenza virus vaccine, inactivated - Not Given Patient Refuses [facility] Comment on above: Result Comment: Elec tronically Signed By: SHAY GILMORE, Luis Arnold\Date and Time Signed: 10/24/23 13:56 EST Note 09-25-2023 Telephone Encounter - María Cadena - 09/25/2023 3:18 PM ESTTelephone Encounter - Selam Thompson APRN-VERA - 09/25/2023 3:18 PM ESTTelephone Encounter - María Cadena - 09/25/2023 3:18 PM EST Note Date & Type Note Facility 09-25-2023 Miscellaneous Notes Formattin g of this note might be different from the original. Pt is requesting 1 month BC refill. Pt had Annual appointment scheduled with this Office on 09/21/23, but cancelled due to insurance being [id number]. Pt has appointment with new Provider, but not until October. Please advise. Thank you RX sent to pharmacy LVM advising RX sent to Pharmacy. documented in this encounter [facility] Telephone encounter Note 09-25-2023 Telephone Encounter - María Cadena - 09/25/2023 3:18 PM EST Note Date & Type Note Facility 09-25-2023 Telephone encount er Note Pt is requesting 1 month BC refill. Pt had Annual appointment scheduled with this Office on 09/21/23, but cancelled due to insurance being [id number]. Pt has appointment with new Provider, but not until October. Please advise. Thank you [facility] Telephone encounter Note 09-25-2023 Telephone Encounter - JOY Pinedo - 09/25/2023 3:18 PM EST Note Date & Type Note Facility 09-25-2023 Telephone encount er Note RX sent to pharmacy [facility] Telephone encounter Note 09-25-2023 Telephone Encounter - María Cadena - 09/25/2023 3:18 PM EST Note Date & Type Note Facility 09-25-2023 Telephone encount er Note LVM advising RX sent to Pharmacy. [facility] [employer] [facility] Evaluation + Plan note Note Date & Type Note Facility Evaluation + Plan note No data available for this section General [facility] [place] Evaluation note Note Date & Type Note Facility Evaluation note Diagnosis Encounter for control pills maintenance Surveillance of previously prescribed contraceptive pill documented in this encounter [facility] Discharge instructions Note Date & Type Note Facility Hospital Discharge instructions No data available for this section General Surgery [facility] Instructions Note Date & Type Note Facility Instructions Not on filedocumented in this en counter [facility] Progress note Note Date & Type Note Facility Progress note No data available for this section General Surgery [facility] Summary Purpose Family History No Family History Records Found No data available for this section No Family History Records Found Advance Directives No Advanced Directives Records FoundNo Advanced Directives Records Found Additional Source Comments INFORMATION SOURCE (unrecogn ized section and content) DATE CREATED AUTHOR 01/04/2023 [facility] DATE CREATED AUTHOR AUTHOR'S ORGANIZ ATION 10/27/2023 [facility] Care Teams (unrecognized sec tion and content) Calculus Professor Relationship Specialty Start Date End Date Vanessa García MD [id number] [id number] PCP - General 08/01/23 FOR RECORDS PERTAINING [...] BE BASED ON THE PRIMARY CLINICAL RECORDS. [facility]. provides no warranty or guarantee of the accuracy or completeness of information in this document.
[2023-11-08 12:11] LABS: Age Gdln ACOG Testing Note (.); IGP, rfx Aptima HPV ASCU Note (.)
== END 2023-11-02 19:47 | disposition home or self-care (01) ==
LOC: LAB 19:46
PROVIDERS: PCP Family Medicine; Visit Provider Physician Assistant
DX: Z01.419 Encounter for gynecological examination (general) (routine) without abnormal findings (principal)
CPT/HCPCS: G0145

== ENCOUNTER 2023-11-28 14:42 | Outpatient (OUT) | payer MEDICAID, SELFPAY | END 2023-11-28 14:43 | disposition home or self-care (01) | LOC: PST 14:42 | PROVIDERS: PCP Family Medicine; Visit Provider Surgery | DX: Z01.818 Encounter for other preprocedural examination (principal); R19.5 Other fecal abnormalities; R10.9 Unspecified abdominal pain ==

== ENCOUNTER 2023-12-06 07:04 | Day surgery (SDC) | payer MEDICAID, SELFPAY ==
--- NOTE | 2023-12-06 | OP_ITS ---
OPERATION DATE: 12/06/2023 PREOPERATIVE DIAGNOSIS: Loose stools and crampy abdominal pain. POSTOPERATIVE DIAGNOSIS: Normal colonoscopy to terminal ileum. PROCEDURE: Colonoscopy to terminal ileum with random biopsies of terminal ileum, ascending colon, descending colon and sigmoid colon. SURGEON: Luis Rodas M.D. ANESTHESIA: Monitored anesthesia care. ESTIMATED BLOOD LOSS: Less than 1 mL. INDICATIONS AND CONSENT: Patient is a 28-year-old female with several year history of intermittent loose stools with crampy abdominal pain. Indications, risks, benefits, alternatives of proceeding with colonoscopy were explained extensively to the patient, including the risks of bleeding, colon perforation or anesthetic complications. All of her questions were answered. Informed consent was obtained. PROCEDURE: Patient brought to the operating room, placed in the left lateral decubitus position. Monitored anesthesia care was provided. Rectal exam was performed which showed no masses or blood. The scope was inserted into the anal canal. Under direct visualization was advanced. It was advanced to the terminal ileum which appeared normal. Random biopsies were taken with cold biopsy forceps with good hemostasis. Upon withdrawal of the scope, mucosal surfaces were carefully examined. There were no mass lesions inflammatory changes. No polyps or diverticulosis. Random biopsies of the ascending, descending and sigmoid colon were obtained with cold biopsy forceps with good hemostasis. The scope was retroflexed in the anal canal. There was no significant hemorrhoidal disease. Scope was then withdrawn. Patient tolerated procedure well, was sent to recovery room in good condition. screening colonoscopy should begin at age 45. CC: Hunter Russell M.D. MTDD
--- OUTSIDE RECORDS SUMMARY | 2023-12-06 07:06 | XMS_ITS | CCD ---
Author Organization [facility] Care Team Providers Care Lawn Care Professional Name Role Phone RICKY ., DR MENDEZ Attending Unavailable RICKY ., DR MENDEZ Consulting Unavailable RICKY ., DR MENDEZ Primary Care Unavailable RICKY Stout, DR MENDEZ Admitting Unavailable Vanessa García MD Primary Care Provider [phone] Vanessa García Primary Care Physician AJITH RODRIGUEZ Attending Unavailable NILPat, Luis Grullon Attending Unavailable NILL, Luis Grullon Attending Unavailable Allergies Allergy Classification Reported Allergen(s) Allergy Type Date of Onset Reaction(s) Facility (1 source) No Known Medication Allergies; Translations: [No Known Medication Allergies] Propensity to adverse reactions (disorder) [facility] Repository Medications Current Medications Medication Drug Class(es) [...] Results Test Name Value Interpretation Reference Range Facility Insurance Correspondenceon 0 11-27-2023 Insurance Correspondence [id number] #1.00TIFF [facility] Consent for Procedure/Surger yon 10-25-2023 Consent for Procedure/Surgery [id number] 2#1.00TIFF Normal [facility] Facesheeton 10-25-2023 Facesheet [id number] 4#1.00TIFF [facility] Ambulatory Visit Summaryon 0 10-24-2023 Ambulatory Visit [...] for choosing us for your care. Normal [facility] Lab Reportson 10-10-2023 Lab Reports [id number] #1.00TIFF [facility] Physician Referralon 024 Physician Referral [id number] #1.00TIFF [facility] INSULINon 12-30-2022 Insulin 142.0 uIU/mL Critically high 2.6-24.9 [facility] Comment on above: Performed By: #### I NSULIN #### [facility] [address] [place] [address] Dr. Jason Herrera CBC AUTO DIFFon 12-28-2022 BASO # 0.1 103/ul Normal 0.0-0.1 [facility] Comment on above: Performed By: #### C BC #### [facility] [address] [place] [address] Dr. Jason eHrrera Basophils/100 WBC (Bld) 0.6 % Normal 0.2-2.0 [facility] Comment on above: Performed By: #### C BC #### [facility] [address] [place] [address] Dr. Jason Herrera EO # 0.1 103/ul Normal 0.0-0.7 [facility] Comment on above: Performed By: #### C BC #### [facility] [address] [place] [address] Dr. Jason Herrera Eosinophils/100 WBC (Bld) 0.6 % Critically low 0.9-7.0 [facility] Comment on above: Performed By: #### C BC #### [facility] [address] [place] [address] Dr. Jason Herrera Erythrocyte distribution width (RBC) [Ratio] 11.9 % Normal 11.0-15.0 [facility] Comment on above: Performed By: #### C BC #### [facility] [address] [place] [address] Dr. Jason Herrera Hematocrit (Bld) [Volume fraction] 42.4 % Normal 36.0-48.0 [facility] Comment on above: Performed By: #### C BC #### [facility] [address] [place] [address] Dr. Jason Herrera Hemoglobin (Bld) [Mass/Vol] 14.5 g/dL Normal 12.0-16.0 [facility] Comment on above: Performed By: #### C BC #### [facility] [address] [place] [address] Dr. Jason Herrera IG # 0.02 10e3/ul Normal 0.00-0.03 [facility] Comment on above: Performed By: #### C BC #### [facility] [address] [place] [address] Dr. Jason Herrera IG % 0.2 % Normal 0.0-0.5 [facility] Comment on above: Performed By: #### C BC #### [facility] [address] [place] [address] Dr. Jason Herrera LYMPH # 3.2 103/ul Normal 1.2-3.8 [facility] Comment on above: Performed By: #### C BC #### [facility] [address] [place] [address] Dr. Jason Herrera Lymphocytes/100 WBC (Bld) 35.7 % Normal 20.5-60.0 [facility] Comment on above: Performed By: #### C BC #### [facility] [address] [place] [address] Dr. Jason Herrera MANUAL DIFF REQ NO Normal [facility] Comment on above: Performed By: #### C BC #### [facility] [address] [place] [address] Dr. Jason Herrera MCH (RBC) [Entitic mass] 32.4 pg Normal 26.7-34.0 [facility] Comment on above: Performed By: #### C BC #### [facility] [address] [place] [address] Dr. Jason Herrera MCHC (RBC) [Mass/Vol] 34.2 g/dL Normal 29.9-35.2 [facility] Comment on above: Performed By: #### C BC #### [facility] [address] [place] [address] Dr. Jason Herrera MCV (RBC) [Entitic vol] 94.9 fL Normal 81.0-99.0 [facility] Comment on above: Performed By: #### C BC #### [facility] [address] [place] [address] Dr. Jason Herrera MONO # 0.4 103/ul Normal 0.3-0.8 [facility] Comment on above: Performed By: #### C BC #### [facility] [address] [place] [address] Dr. Jason Herrera Monocytes/100 WBC (Bld) 4.7 % Normal 1.7-12.0 [facility] Comment on above: Performed By: #### C BC #### [facility] [address] [place] [address] Dr. Jason Herrera NEUT # 5.3 103/ul Normal 1.4-6.5 [facility] Comment on above: Performed By: #### C BC #### [facility] [address] [place] [address] Dr. Jason Herrera Neutrophils/100 WBC (Bld) 58.2 % Normal 43.0-75.0 [facility] Comment on above: Performed By: #### C BC #### [facility] [address] [place] [address] Dr. Jason Herrera Platelet mean volume (Bld) [Entitic vol] 8.6 fL Critically low 9.5-13.5 [facility] Comment on above: Performed By: #### C BC #### [facility] [address] [place] [address] Dr. Jason Herrera PLT 285 103/ul Normal 150-450 [facility] Comment on above: Performed By: #### C BC #### [facility] [address] [place] [address] Dr. Jason Herrera RBC 4.47 106/ul Normal 4.20-5.40 [facility] Comment on above: Performed By: #### C BC #### [facility] [address] [place] [address] Dr. Jason Herrera WBC 9.1 103/ul Normal 4.0-11.0 [facility] Comment on above: Performed By: #### C BC #### [facility] [address] [place] [address] Dr. Jason Herrera FREE THYROXINE INDEX T7on FTI 3.45 Normal 1.30-4.50 [facility] Comment on above: Performed By: #### L IPID, CMP, TSH, T7 #### [facility] [address] [address] [address] Jason Herrera T3U 29.0 % Critically low 30.0-39.0 [facility] Comment on above: Performed By: #### L IPID, CMP, TSH, T7 #### [facility] [address] [address] [address] Jason Herrera T4 [Mass/Vol] 11.90 ug/dL Normal 4.80-13.90 [facility] Comment on above: Performed By: #### L IPID, CMP, TSH, T7 #### [facility] [address] [address] [address] Jason Herrera GLYCOHEMOGLOBIN A1Con 2022 ADA RECOMMENDATION SEE BELOW Normal [facility] Comment on above: Result Comment: ADA RECOMMENDED LIMIT 4.0 - 6.0 ADA THERAPEUTIC TARGET < 7.0 ACTION SUGGESTED > 7.0 Performed By: #### A 1C #### [facility] [address] [place] [address] Dr. Jason Herrera Glucose [Mass/Vol] 105 mg/dL Normal [facility] Comment on above: Performed By: #### A 1C #### [facility] [address] [place] [address] Dr. Jason Herrera HbA1c (Bld) [Mass fraction] 5.3 % Normal 4.5-6.2 [facility] Comment on above: Performed By: #### A 1C #### [facility] [address] [place] [address] Dr. Jason Herrera IRONon 12-28-2022 Iron [Mass/Vol] 114.0 ug/dL Normal 50.0-170.0 [facility] Comment on above: Performed By: #### I TARYN #### [facility] [address] [place] [address] Dr. Jason Herrera LIPID PROFILEon 12-28-2022 CHOL-HDL RATIO NORM SEE BELOW Normal [facility] Comment on above: Result Comment: 3.3 - 4.4 LOW RISK 4.4 - 7.1 AVERAGE RISK 7.1 - 11.0 MODERATE RISK >11.0 HIGH RISK Performed By: #### L IPID, CMP, TSH, T7 #### [facility] [address] [address] [address] Jason Herrera Cholesterol [Mass/Vol] 172 mg/dL Normal <=200 [facility] Comment on above: Performed By: #### L IPID, CMP, TSH, T7 #### [facility] [address] [address] [address] Jason Herrera Cholesterol in HDL [Mass/Vol] 34 mg/dL Critically low 40-60 [facility] Comment on above: Performed By: #### L IPID, CMP, TSH, T7 #### [facility] [address] [address] [address] Jason Herrera Cholesterol in LDL [Mass/Vol] 105.6 mg/dL Normal [facility] Comment on above: Performed By: #### L IPID, CMP, TSH, T7 #### [facility] [address] [address] [address] Jason Herrera Cholesterol.total/Chol esterol in HDL [Mass ratio] 5.1 {ratio} Normal [facility] Comment on above: Performed By: #### L IPID, CMP, TSH, T7 #### [facility] [address] [place] [address] Dr. Jason Herrera HDL NORMAL > or = 60 mg/dl - LOW CARDIOVASCULAR RISK <40 mg/dl - HIGH CARDIOVASCULAR RISK Normal [facility] Comment on above: Performed By: #### L IPID, CMP, TSH, T7 #### [facility] [address] [address] [address] aJson Herrera LDL CALC NORMAL SEE BELOW Normal [facility] Comment on above: Result Comment: <100 mg/dl OPTIMAL 100 - 129 mg/dl NEAR OR ABOVE OPTIMAL 130 - 159 mg/dl BORDERLINE HIGH 160 - 189 mg/dl HIGH >190 mg/dl VERY HIGH Performed By: #### L IPID, CMP, TSH, T7 #### [facility] [address] [address] [address] Jason Herrera Triglyceride [Mass/Vol] 162 mg/dL Critically high <=150 [facility] Comment on above: Performed By: #### L IPID, CMP, TSH, T7 #### [facility] [address] [place] [address] Dr. Jason Herrera VLDL CALC 32.4 mg/dL Normal [facility] Comment on above: Performed By: #### L IPID, CMP, TSH, T7 #### [facility] [address] [address] [address] Jason Herrera PROF 14(COMP METB)on 023 Albumin [Mass/Vol] 3.9 g/dL Normal 3.4-5.0 [facility] Comment on above: Performed By: #### L IPID, CMP, TSH, T7 #### [facility] [address] [place] [address] Dr. Jason Herrera Albumin/Globulin [Mass ratio] 0.9 {ratio} Normal [facility] Comment on above: Performed By: #### L IPID, CMP, TSH, T7 #### [facility] [address] [address] [address] Jason Herrera ALP [Catalytic activity/Vol] 48 U/L Normal 46-116 [facility] Comment on above: Performed By: #### L IPID, CMP, TSH, T7 #### [facility] [address] [place] [address] Dr. Jason Herrera ALT [Catalytic activity/Vol] 58 U/L Normal 14-59 [facility] Comment on above: Performed By: #### L IPID, CMP, TSH, T7 #### [facility] [address] [address] [address] Jason Herrera Anion gap [Moles/Vol] 12.4 mmol/L Normal [facility] Comment on above: Performed By: #### L IPID, CMP, TSH, T7 #### [facility] [address] [place] [address] Dr. Jason Herrera AST [Catalytic activity/Vol] 35 U/L Normal 15-37 [facility] Comment on above: Performed By: #### L IPID, CMP, TSH, T7 #### [facility] [address] [place] [address] Dr. Jason Herrera Bilirubin [Mass/Vol] 0.2 mg/dL Normal 0.2-1.0 [facility] Comment on above: Performed By: #### L IPID, CMP, TSH, T7 #### [facility] [address] [place] [address] Dr. Jasno Herrera Calcium [Mass/Vol] 9.0 mg/dL Normal 8.5-10.1 [facility] Comment on above: Performed By: #### L IPID, CMP, TSH, T7 #### [facility] [address] [place] [address] Dr. Jason Herrera Chloride [Moles/Vol] 107 mmol/L Normal 98-107 [facility] Comment on above: Performed By: #### L IPID, CMP, TSH, T7 #### [facility] [address] [place] [address] Dr. Jason Herrera CO2 [Moles/Vol] 25.9 mmol/L Normal 21.0-32.0 [facility] Comment on above: Performed By: #### L IPID, CMP, TSH, T7 #### [facility] [address] [place] [address] Dr. Jason Herrera Creatinine [Mass/Vol] 0.72 mg/dL Normal 0.55-1.02 [facility] Comment on above: Performed By: #### L IPID, CMP, TSH, T7 #### [facility] [address] [place] [address] Dr. Jason Herrera EGFR-AF MEXICAN >60 Normal >=60 [facility] Comment on above: Performed By: #### L IPID, CMP, TSH, T7 #### [facility] [address] [place] [address] Dr. Jason Herrera EGFR-NON AF MEXICAN >60 Normal >=60 [facility] Comment on above: Performed By: #### L IPID, CMP, TSH, T7 #### [facility] [address] [place] [address] Dr. Jason Herrera Globulin (S) [Mass/Vol] 4.3 g/dL Normal [facility] Comment on above: Performed By: #### L IPID, CMP, TSH, T7 #### [facility] [address] [address] [address] Jason Herrera Glucose [Mass/Vol] 103 mg/dL Normal 74-106 [facility] Comment on above: Performed By: #### L IPID, CMP, TSH, T7 #### [facility] [address] [address] [address] Jason Herrera Potassium [Moles/Vol] 4.3 mmol/L Normal 3.5-5.1 [facility] Comment on above: Performed By: #### L IPID, CMP, TSH, T7 #### [facility] [address] [address] [address] Jason Herrera Protein [Mass/Vol] 8.2 g/dL Normal 6.4-8.2 [facility] Comment on above: Performed By: #### L IPID, CMP, TSH, T7 #### [facility] [address] [address] [address] Jason Herrera Sodium [Moles/Vol] 141 mmol/L Normal 136-145 [facility] Comment on above: Performed By: #### L IPID, CMP, TSH, T7 #### [facility] [address] [address] [address] Jason Herrera Urea nitrogen [Mass/Vol] 9.0 mg/dL Normal 7.0-18.0 [facility] Comment on above: Performed By: #### L IPID, CMP, TSH, T7 #### [facility] [address] [address] [address] Jason Herrera Urea nitrogen/Creatinine [Mass ratio] 12.5 mg/mg Normal [facility] Comment on above: Performed By: #### L IPID, CMP, TSH, T7 #### [facility] [address] [address] [address] Jason Herrera TSHon 12-28-2022 TSH 0.365 uIU/mL Normal 0.358-3.740 [facility] Comment on above: Performed By: #### L IPID, CMP, TSH, T7 #### [facility] [address] [address] [address] Jason Herrera Vital Signs Date Time Vital Sign Value Performing Clinician Rafy hernandez 10-24-2023 13:16-0500 Blood Pressure Location Luis NILL [facility] [place] 10-24-2023 13:16-0500 Diastolic blood pressure 84 mm[Hg] Luis NILL [facility] [place] 10-24-2023 13:16-0500 Heart rate 72 /min Luis NILL [facility] [place] 10-24-2023 13:16-0500 Respiratory rate 16 /min Luis NILL [facility] [place] 10-24-2023 13:16-0500 Systolic blood pressure 124 mm[Hg] Luis NILL [facility] Encounters Encounter Date Encounter Type Care Provider Facility Start: 11-02-2023 End: 11-02-2023 ambulatory AJITH RODRIGUEZ Not Available Start: 10-24-2023 End: 10-25-2023 ambulatory Luis R NILL Facility:[facility] Start: 10-24-2023 End: 10-24-2023 Patient encounter procedure Luis R NILL [facility] [place] Start: 09-25-2023 Orders Only Selam Thompson BISCUIT MACHINE OPERATOR-TALLOW REFINER Work Phone: [facility] Comment on above: Encounter for control pills maintenance Start: 09-21-2023 ambulatory Luis NILL Facility:[facility] Start: 09-19-2023 ambulatory Luis NILL [facility] Start: 01-03-2023 Encounter for genera l adult medical examination without abnormal findings DR VANESSA GARCÍA . [facility] Start: 12-28-2022 End: 12-29-[address] VANESSA GARCÍA . Facility: Start: 12-28-2022 End: 12-29-2022 Encounter for general adult medical examination without abnormal findings DR VANESSA GARCÍA . Facility: Procedures Date Procedure Procedure Detail Performing Clinician Start: 03-30-2021 Microscopic observat ion [Identifier] in Cervix by Cyto stain Selam Thompson BISCUIT MACHINE OPERATOR-TALLOW REFINER Work Phone: None (qualifier value) Braulio lilia DAY Plan of Treatment Date Care Activity Detail Author Start: 08-01-2033 DTaP,Tdap and Td Vaccines (7 - Td or Tdap) DTaP,Tdap and Td Vaccines (7 - Td or Tdap) [facility] Start: 08-01-2024 Adult BMI Screening [facility] Screen [facility] Start: 08-01-2024 Tobacco Screening Tobacco Screening [facility] Start: 03-30-2024 Screening for malign ant neoplasm of cervix Pap Smear [facility] Start: 09-15-2023 Adult BMI Follow Up Plan Adult BMI Follow Up Plan [facility] Start: 04-28-2023 Influenza vaccination Influenza Vacc ine [facility] Start: 2007 Depression Screening Depression Scre ening [facility] Immunizations Immunization Date Immunization Notes Care Provider Fa cility 08-01-2023 tetanus toxoid, reduced diphtheria toxoid, and acellular pertussis vaccine, adsorbed Selam Thompson BISCUIT MACHINE OPERATOR-TALLOW REFINER [facility] Phone: [facility] 05-26-2021 influenza virus vaccine, unspecified formulation Selam Thompson BISCUIT MACHINE OPERATOR-TALLOW REFINER Work Phone: [facility] [email or web address] NEGATED: Highlighted row has not occurred!10-24-2023 influenza virus vaccine, unspecified formulation Luis DAY [facility] [place] Payers Date Payer Category Payer Medicaid [employer] MED[employer] [facility] MEDICAID [id number] 2022-Present [phone] [address] [address] [place] [address] [id number] 1995 Unknown [id number] 1995 Unknown [id number] 1995 Unknown [id number] 1995 Unknown [id number] 1959 Private Health Insurance [id number] Social History Date Type Detail Facility Start: 09-15-2022 End: 10-24-2023 Tobacco smoking status MAIS Never smoked tobacco [facility] Start: 09-15-2022 Tobacco use and exposure Smokeless tobacco non-user [facility] Start: 08-01-2023 Alcohol intake Current drinke r of alcohol (finding) [facility] Start: 10-07-2020 End: 08-01-2023 History of Social function [facility] Start: 10-07-2020 End: 08-01-2023 Tobacco use panel [facility] Childcare Unknown [facility] Start: 03-30-2021 Alcohol Comment occasionally [facility] Start: 1995 Sex Assigned At Not on file P [facility] Functional Status Date Assessment Result Facility 10-24-2023 Functional Status N/A [facility] Clinical Note 10-24-2023 Note Date & Type [...] vaccine, inactivated - Not Given Patient Refuses [facility] Comment on above: Result Comment: Elec tronically [...] 09/21/23, but cancelled due to insurance being [id number]. Pt has appointment with new Provider, but not until October. Please advise. Thank you RX sent to pharmacy LVM advising RX sent to Pharmacy. documented in this encounter [facility] Telephone encounter Note 09-25-2023 Telephone Encounter - María Cadena - 09/25/2023 3:18 PM EST Note Date & Type Note Facility 09-25-2023 Telephone encount er Note Pt is requesting 1 month BC refill. Pt had Annual appointment scheduled with this Office on 09/21/23, but cancelled due to insurance being [id number]. Pt has appointment with new Provider, but [...] Note LVM advising RX sent to Pharmacy. [facility] Evaluation + Plan note Note Date & Type Note Facility Evaluation + Plan note No data available for this section [facility] [place] Evaluation note Note Date & Type Note Facility Evaluation note Diagnosis Encounter for control pills maintenance Surveillance of previously prescribed contraceptive pill documented in this encounter [facility] Hospital Discharge instructions Note Date & Type Note Facility Hospital Discharge instructions No data available for this section [facility] [place] Instructions Note Date & Type Note Facility Instructions Not on filedocumented in this en counter [facility] Progress note Note Date & Type Note Facility Progress note No data available for this section [facility] [place] Summary Purpose Family History No Family History Records Found No data available for this section No Family History Records FoundNo Family History Records Found Advance Directives No Advanced Directives Records FoundNo Advanced Directives Records FoundNo Advanced Directives Records Found Additional Source Comments INFORMATION SOURCE (unrecogn ized section and content) DATE CREATED AUTHOR 01/04/2023 [facility] [place] [facility] DATE CREATED AUTHOR AUTHOR'S ORGANIZ ATION 11/03/2023 [facility] EPIC DATE CREATED AUTHOR AUTHOR'S ORGANIZ ATION 11/28/2023 [facility] Care Teams (unrecognized sec tion and content) Lawn Care Professional Relationship Specialty Start Date End Date Vanessa García MD [address] [place] [address] PCP - General 08/01/23 FOR RECORDS PERTAINING [...] BE BASED ON THE PRIMARY CLINICAL RECORDS. [employer] [facility]. provides no warranty or guarantee of the accuracy or completeness of information in this document.
[2023-12-06 07:10] VITALS: BP 144/95; PULSE 124; TEMP 36.1; O2SAT 96; BMI 43.2
[2023-12-06 07:28] LABS: HCG Qualitative NEGATIVE (NEGATIVE)
[2023-12-06] MEDS: LACTATED RINGER'S SOLUTION 1,000 ML 50 ML IV (07:28)
[2023-12-06 08:32] VITALS: BP 114/76; PULSE 96; TEMP 37.1; O2SAT 97
[2023-12-06 08:47] VITALS: BP 125/93; PULSE 91; O2SAT 98
[2023-12-06 09:02] VITALS: BP 142/87; PULSE 94; O2SAT 97
== END 2023-12-06 09:02 | disposition home or self-care (01) ==
PROVIDERS: PCP Family Medicine; Visit Provider Surgery
PROC: (CPT 00811; principal; 2023-12-06 08:15)
DX: R19.7 Diarrhea, unspecified (principal); R10.9 Unspecified abdominal pain; E66.01 Morbid (severe) obesity due to excess calories; J30.2 Other seasonal allergic rhinitis; Z68.41 Body mass index [BMI] 40.0-44.9, adult
CPT/HCPCS: 00811; 45380; 36415; 84703; 88305; 99999; J2704

== ENCOUNTER 2024-06-07 07:57 | Outpatient (OUT) | payer MEDICAID, SELFPAY ==
--- OUTSIDE RECORDS SUMMARY | 2024-06-07 08:00 | XMS_ITS | CCD ---
Author Organization [facility] [place] [facility] CliniSyar Care Team Providers Care Rolfer Name Role Phone RICKY ., DR MENDEZ Attending Unavailable RICKY ., DR MENDEZ Consulting Unavailable RICKY ., DR MENDEZ Primary Care Unavailable RICKY ., DR MENDEZ Admitting Unavailable Vanessa Russell MD Primary Care Provider [phone] Vanessa Russell Primary Care Physician AJITH RODRIGUEZ Attending Unavailable NILL, Luis Grullon Attending Unavailable NILL, Luis Grullon Attending Unavailable NILL, Luis Grullon Attending Unavailable NILL, Luis Grullon Attending Unavailable Allergies Allergy Classification Reported Allergen(s) Allergy Type Date of Onset Reaction(s) Facility (1 source) No Known Medication Allergies; Translations: [No Known Medication Allergies] Propensity to adverse reactions (disorder) [facility] Repository Medications Current Medications Medication Drug Class(es) [...] Sig (Original) citalopram 10 mg oral tablet (4 sources) Serotonin Reuptake Inhibitor Start: 12-27-2022 take 1 tablet by mouth once daily hydrOXYzine hydrochloride 25 mg oral tablet (4 sources) Antihistamine Start: 10-09-2023 take 1 tablet by mouth every eight hours as needed Start: 08-12-2022 hydrOXYzine (A TARAX) 25 mg tablet TAKE 1 TABLET BY MOUTH EVERY 6 TO 8 HOURS 0 08/12/2022 Active Problems Active Problems Problem Classification Problem Date Documented Da te Episodic/Chronic Allergic reactions (2 sources) Eczema 10-09-2023 Episodic Contraceptive and procreative management (1 source) Oral contraception status; Translations: [Encounter for surveillance of contraceptive pills] 09-25-2023 Episodic Deficiency and other anemia (1 source) Anemia, unspecified; Translations: [ANEMIA UNSPECIFIED] Onset: 01-03-2023 Episodic Diabetes mellitus without complication (1 source) Other abnormal glucose; Translations: [OTHER ABNORMAL GLUCOSE] Onset: 01-03-2023 Episodic Other gastrointestinal disorders (3 sources) Irritable bowel syndrome; Translations: [Irritable bowel syndrome without diarrhea] Onset: 12-19-2023 10-09-2023 Chronic Other gastrointestinal disorders (3 sources) Diarrhea; Translations: [Diarrhea, unspecified] Onset: 10-24-2023 Episodic Other gastrointestinal disorders (2 sources) Loose stool 10-09-2023 Episodic Other nutritional; endocrine; and metabolic disorders (4 sources) Body mass index 40+ - severely obese; Translations: [Body mass index (BMI) 40.0-44.9, adult] Onset: 09-15-2022 09-15-2022 Chronic Other nutritional; endocrine; and metabolic disorders (2 sources) Morbid obesity 10-24-2023 Chronic Other upper respiratory disease (2 sources) Seasonal allergic rhinitis 10-09-2023 Chronic Past or Other Problems Problem Classification Problem Date Documented Da te Episodic/Chronic Unclassified (2 sources) Onset: 09-15-2022 09-15-2022 Results Test Name Value Interpretation Reference Range Facility Ambulatory Visit Summaryon 0 12-19-2023 Ambulatory Visit Summary WILLIAMS MOSELEY :1995 Visit Date:12/19/2023 Ambulatory Visit Instructions Your Diagnosis Irritable bowel syndrome Your Care Team Attending Physician - SHAY GILMORE, Luis Grullon Primary Care Physician - Vanessa Russell MD This Is Your Medications List citalopram (CeleXA 10 mg Tab) hydrOXYzine (hydrOXYzine hydrochloride 25 mg Tab) Procedures Performed Colonoscopy (12/06/2023). Medications What How Much When Instructions Unchanged citalopram (CeleXA 10 mg Tab) 1 Tablets By Mouth Every day 1 Unknown, 0 Refill(s) Unchanged hydrOXYzine (hydrOXYzine hydrochloride 25 mg Tab) 1 Tablets By Mouth Every 8 hours as needed for as needed for anxiety 1 Unknown, 0 Refill(s) Allergies No Known Allergies No Known Medication Allergies Problems Ongoing - Any problem that you are currently receiving treatment for. BMI 40.0-44.9, adult Eczema Frequent loose stools Irritable bowel syndrome Loose stools Morbid obesity Seasonal allergic rhinitis Patient Survey You may receive a survey via text or e-mail asking about your office visit. Please share your experience with us by completing your survey. We appreciate your feedback and thank you for choosing us for your care. Normal [facility] General Surgery Office/Clini c Noteon 12-19-2023 General Surgery Office/Clinic Note Chief Complaint colonoscopy follow up HPI Staff 13 day post operative follow up post colonoscopy with terminal ileum, ascending colon, descending colon and sigmoid biopsies. doing well, no abd pain, still with loose stools at times; no blood in stools. History of Present Illness s/p colonoscopy with random biopsies due to frequent loose stools and crampy abd pain; normal colonoscopy to terminal ileum, with normal random biopsies. Review of Systems ROS - Provider Constitutional: no fever, no [...] been reviewed and are negative or noncontributory. Assessment/Plan 1. Irritable bowel syndrome (K58.9: Irritable bowel syndrome without diarrhea) doing well, recommend high fiber diet and daily fiber supplement; if no improvement, recommend low FODMAP diet; call with problems/questions. Follow-up No qualifying data available Problem List/Past Medical History Ongoing BMI 40.0-44.9, adult Eczema Frequent loose stools Irritable bowel syndrome Loose stools Morbid obesity Seasonal allergic rhinitis Historical No qualifying data Procedure/Surgical History Colonoscopy (12/06/2023). Medications CeleXA 10 mg Tab, 10 mg= [...] vaccine, inactivated - Not Given Patient Refuses Normal [facility] Comment on above: Result Comment: Elec tronically Signed By: SHAY GILMORE, Luis Arnold\Date and Time Signed: 12/19/23 14:26 EDT Outside Colonoscopyon 2023 Outside Colonoscopy [id number] #1.00TIFF Normal [facility] Pathology Noteon 12-08-2023 Pathology Note [id number] #1.00TIFF Normal [facility] Lab Reportson 12-06-2023 Lab Reports [id number] #1.00TIFF [facility] Insurance Correspondenceon 0 11-27-2023 Insurance Correspondence [id number] #1.00TIFF [facility] Consent for Procedure/Surger yon 10-25-2023 Consent for Procedure/Surgery [id number] 2#1.00TIFF [facility] Facesheeton 10-25-2023 Facesheet [id number] 4#1.00TIFF [facility] Ambulatory Visit Summaryon 0 10-24-2023 Ambulatory Visit Summary [facility]SE[facility] :1995 Visit Date:10/24/2023 Ambulatory Visit Instructions Your Care Team Attending Physician - SHAY GILMORE, Luis Grullon Primary Care Physician - Vanessa Russell MD This Is Your Medications List Contact [...] you for choosing us for your care. Robert [facility] Lab Reportson 10-10-2023 Lab Reports [id number] #1.00TIFF Normal [facility] Physician Referralon 024 Physician Referral [id number] #1.00TIFF Normal [facility] INSULINon 12-30-2022 Insulin 142.0 uIU/mL Critically high 2.6-24.[address] [facility] Comment on above: Performed By: #### I NSULIN #### [facility] [address] [place] [address] Dr. Jason Herrera CBC AUTO DIFFon 12-28-2022 BASO # 0.1 103/ul Normal 0.0-0.1 [facility] Comment on above: Performed By: #### C BC #### [facility] [address] [place] [address] Dr. Jason Herrera Basophils/100 WBC (Bld) 0.6 % Normal 0.2-2.0 [facility] Comment on above: Performed By: #### C BC #### [facility] [address] [address] [address] Jason Herrera EO # 0.1 103/ul Normal 0.0-0.7 [facility] Comment on above: Performed By: #### C BC #### [facility] [address] [address] [address] Jason Herrera Eosinophils/100 WBC (Bld) 0.6 % Critically low 0.9-7.0 [facility] Comment on above: Performed By: #### C BC #### [facility] [address] [place] [address] Dr. Jason Herrera Erythrocyte distribution width (RBC) [Ratio] 11.9 % Normal 11.0-15.0 [facility] Comment on above: Performed By: #### C BC #### [facility] [address] [place] [address] Dr. Jason Herrera Hematocrit (Bld) [Volume fraction] 42.4 % Normal 36.0-48.0 [facility] Comment on above: Performed By: #### C BC #### [facility] [address] [address] [address] Jason Herrera Hemoglobin (Bld) [Mass/Vol] 14.5 g/dL Normal 12.0-16.0 [facility] Comment on above: Performed By: #### C BC #### [facility] [address] [place] [address] Dr. Jason Herrera IG # 0.02 10e3/ul Normal 0.00-0.03 [facility] Comment on above: Performed By: #### C BC #### [facility] [address] [place] [address] Dr. Jason Herrera IG % 0.2 % Normal 0.0-0.5 [facility] Comment on above: Performed By: #### C BC #### [facility] [address] [place] [address] Dr. Jason Herrera LYMPH # 3.2 103/ul Normal 1.2-3.8 [facility] Comment on above: Performed By: #### C BC #### [facility] [address] [place] [address] Dr. Jason Herrera Lymphocytes/100 WBC (Bld) 35.7 % Normal 20.5-60.0 [facility] Comment on above: Performed By: #### C BC #### [facility] [address] [place] [address] Dr. Jason Herrera MANUAL DIFF REQ NO Normal [facility] Comment on above: Performed By: #### C BC #### [facility] [address] [place] [address] Dr. Jason Herrera MCH (RBC) [Entitic mass] 32.4 pg Normal 26.7-34.0 [facility] Comment on above: Performed By: #### C BC #### [facility] [address] [place] [address] Dr. Jason Herrera MCHC (RBC) [Mass/Vol] 34.2 g/dL Normal 29.9-35.2 [facility] Comment on above: Performed By: #### C BC #### [facility] [address] [address] [address] Jason Herrera MCV (RBC) [Entitic vol] 94.9 fL Normal 81.0-99.0 [facility] Comment on above: Performed By: #### C BC #### [facility] [address] [address] [address] Jason Herrera MONO # 0.4 103/ul Normal 0.3-0.8 [facility] Comment on above: Performed By: #### C BC #### [facility] [address] [address] [address] Jason Herrera Monocytes/100 WBC (Bld) 4.7 % Normal 1.7-12.0 [facility] Comment on above: Performed By: #### C BC #### [facility] [address] [place] [address] Dr. Jason Herrera NEUT # 5.3 103/ul Normal 1.4-6.5 [facility] Comment on above: Performed By: #### C BC #### [facility] [address] [place] [address] Dr. Jason Herrera Neutrophils/100 WBC (Bld) 58.2 % Normal 43.0-75.0 [facility] Comment on above: Performed By: #### C BC #### [facility] [address] [place] [address] Dr. Jason Herrera Platelet mean volume (Bld) [Entitic vol] 8.6 fL Critically low 9.5-13.5 [facility] Comment on above: Performed By: #### C BC #### [facility] [address] [place] [address] Dr. Jason Herrera PLT 285 103/ul Normal 150-450 [facility] Comment on above: Performed By: #### C BC #### [facility] [address] [place] [address] Dr. Jason Herrera RBC 4.47 106/ul Normal 4.20-5.40 [facility] Comment on above: Performed By: #### C BC #### [facility] [address] [place] [address] Dr. Jason Herrera WBC 9.1 103/ul Normal 4.0-11.0 [facility] Comment on above: Performed By: #### C BC #### [facility] [address] [place] [address] Dr. Jason Herrera FREE THYROXINE INDEX T7on FTI 3.45 Normal 1.30-4.50 [facility] Comment on above: Performed By: #### L IPID, CMP, TSH, T7 #### [facility] [address] [place] [address] Dr. Jason Herrera T3U 29.0 % Critically low 30.0-39.0 [facility] Comment on above: Performed By: #### L IPID, CMP, TSH, T7 #### [facility] [address] [place] [address] Dr. Jason Herrera T4 [Mass/Vol] 11.90 ug/dL Normal 4.80-13.90 [facility] Comment on above: Performed By: #### L IPID, CMP, TSH, T7 #### [facility] [address] [place] [address] Dr. Jason Herrera GLYCOHEMOGLOBIN A1Con 2022 ADA RECOMMENDATION SEE BELOW Normal [facility] Comment on above: Result Comment: ADA RECOMMENDED LIMIT 4.0 - 6.0 ADA THERAPEUTIC TARGET < 7.0 ACTION SUGGESTED > 7.0 Performed By: #### A 1C #### [facility] [address] [place] [address] Dr. Jason Herrera Glucose [Mass/Vol] 105 mg/dL Normal [facility] Comment on above: Performed By: #### A 1C #### [facility] [address] [place] [address] Dr. Jason Herrera HbA1c (Bld) [Mass fraction] 5.3 % Normal 4.5-6.2 [facility] Comment on above: Performed By: #### A 1C #### [facility] [address] [place] [address] Dr. Jason Herrera IRONon 12-28-2022 Iron [Mass/Vol] 114.0 ug/dL Normal 50.0-170.0 [facility] Comment on above: Performed By: #### I TARYN #### [facility] [address] [address] [address] Jason Herrera LIPID PROFILEon 12-28-2022 CHOL-HDL RATIO NORM SEE BELOW Normal [facility] Comment on above: Result Comment: 3.3 - 4.4 LOW RISK 4.4 - 7.1 AVERAGE RISK 7.1 - 11.0 MODERATE RISK >11.0 HIGH RISK Performed By: #### L IPID, CMP, TSH, T7 #### [facility] [address] [address] [address] Jason Herrera Cholesterol [Mass/Vol] 172 mg/dL Normal <=200 [facility] Comment on above: Performed By: #### L IPID, CMP, TSH, T7 #### [facility] [address] [address] [address] Jason Herrera Cholesterol in HDL [Mass/Vol] 34 mg/dL Critically low 40-60 [facility] Comment on above: Performed By: #### L IPID, CMP, TSH, T7 #### [facility] [address] [address] [address] Jason Herrera Cholesterol in LDL [Mass/Vol] 105.6 mg/dL Normal [facility] Comment on above: Performed By: #### L IPID, CMP, TSH, T7 #### [facility] [address] [address] [address] Jason Herrera Cholesterol.total/Chol esterol in HDL [Mass ratio] 5.1 {ratio} Normal [facility] Comment on above: Performed By: #### L IPID, CMP, TSH, T7 #### [facility] [address] [place] [address] Dr. Jason Herrera HDL NORMAL > or = 60 mg/dl - LOW CARDIOVASCULAR RISK <40 mg/dl - HIGH CARDIOVASCULAR RISK Normal [facility] Comment on above: Performed By: #### L IPID, CMP, TSH, T7 #### [facility] [address] [place] [address] Dr. Jason Herrera LDL CALC NORMAL SEE BELOW Normal [facility] Comment on above: Result Comment: <100 mg/dl OPTIMAL 100 - 129 mg/dl NEAR OR ABOVE OPTIMAL 130 - 159 mg/dl BORDERLINE HIGH 160 - 189 mg/dl HIGH >190 mg/dl VERY HIGH Performed By: #### L IPID, CMP, TSH, T7 #### [facility] [address] [address] [address] Jason Herrera Triglyceride [Mass/Vol] 162 mg/dL Critically high <=150 [facility] Comment on above: Performed By: #### L IPID, CMP, TSH, T7 #### [facility] [address] [address] [address] Jason Herrera VLDL CALC 32.4 mg/dL Normal [facility] Comment on above: Performed By: #### L IPID, CMP, TSH, T7 #### [facility] [address] [address] [address] Jason Herrera PROF 14(COMP METB)on 023 Albumin [Mass/Vol] 3.9 g/dL Normal 3.4-5.0 [facility] Comment on above: Performed By: #### L IPID, CMP, TSH, T7 #### [facility] [address] [address] [address] Jason Herrera Albumin/Globulin [Mass ratio] 0.9 {ratio} Normal [facility] Comment on above: Performed By: #### L IPID, CMP, TSH, T7 #### [facility] [address] [address] [address] Jason Herrera ALP [Catalytic activity/Vol] 48 U/L Normal 46-116 [facility] Comment on above: Performed By: #### L IPID, CMP, TSH, T7 #### [facility] [address] [address] [address] Jason Herrera ALT [Catalytic activity/Vol] 58 U/L Normal 14-59 [facility] Comment on above: Performed By: #### L IPID, CMP, TSH, T7 #### [facility] [address] [address] [address] Jason Herrera Anion gap [Moles/Vol] 12.4 mmol/L Normal [facility] Comment on above: Performed By: #### L IPID, CMP, TSH, T7 #### [facility] [address] [address] [address] Jason Herrera AST [Catalytic activity/Vol] 35 U/L Normal 15-37 [facility] Comment on above: Performed By: #### L IPID, CMP, TSH, T7 #### [facility] [address] [address] [address] Jason Herrera Bilirubin [Mass/Vol] 0.2 mg/dL Normal 0.2-1.0 [facility] Comment on above: Performed By: #### L IPID, CMP, TSH, T7 #### [facility] [address] [address] [address] Jason Herrera Calcium [Mass/Vol] 9.0 mg/dL Normal 8.5-10.1 [facility] Comment on above: Performed By: #### L IPID, CMP, TSH, T7 #### [facility] [address] [address] [address] Jason Herrera Chloride [Moles/Vol] 107 mmol/L Normal 98-107 [facility] Comment on above: Performed By: #### L IPID, CMP, TSH, T7 #### [facility] [address] [address] [address] Jason Herrera CO2 [Moles/Vol] 25.9 mmol/L Normal 21.0-32.0 [facility] Comment on above: Performed By: #### L IPID, CMP, TSH, T7 #### [facility] [address] [address] [address] Jason Herrera Creatinine [Mass/Vol] 0.72 mg/dL Normal 0.55-1.02 [facility] Comment on above: Performed By: #### L IPID, CMP, TSH, T7 #### [facility] [address] [address] [address] Jason Herrera EGFR-AF [place]IZ[place] >60 Normal >=60 [facility] Comment on above: Performed By: #### L IPID, CMP, TSH, T7 #### [facility] [address] [address] [address] Jason Herrera EGFR-NON AF CITIZEN [place] >60 Normal >=60 [facility] Comment on above: Performed By: #### L IPID, CMP, TSH, T7 #### [facility] [address] [address] [address] Jason Herrera Globulin (S) [Mass/Vol] 4.3 g/dL Normal [facility] Comment on above: Performed By: #### L IPID, CMP, TSH, T7 #### [facility] [address] [address] [address] Jason Herrera Glucose [Mass/Vol] 103 mg/dL Normal 74-106 [facility] Comment on above: Performed By: #### L IPID, CMP, TSH, T7 #### [facility] [address] [place] [address] Dr. Jason Herrera Potassium [Moles/Vol] 4.3 mmol/L Normal 3.5-5.1 [facility] Comment on above: Performed By: #### L IPID, CMP, TSH, T7 #### [facility] [address] [address] [address] Jason Herrera Protein [Mass/Vol] 8.2 g/dL Normal 6.4-8.2 [facility] Comment on above: Performed By: #### L IPID, CMP, TSH, T7 #### [facility] [address] [address] [address] Jason Herrera Sodium [Moles/Vol] 141 mmol/L Normal 136-145 [facility] Comment on above: Performed By: #### L IPID, CMP, TSH, T7 #### [facility] [address] [place] [address] Dr. Jason Herrera Urea nitrogen [Mass/Vol] 9.0 mg/dL Normal 7.0-18.0 [facility] Comment on above: Performed By: #### L IPID, CMP, TSH, T7 #### [facility] [address] [place], [place] [address] Dr. Jason Herrera Urea nitrogen/Creatinine [Mass ratio] 12.5 mg/mg Normal [facility] Comment on above: Performed By: #### L IPID, CMP, TSH, T7 #### [facility] [address] [place], [place] [address] Dr. Jason Herrera TSHon 12-28-2022 TSH 0.365 uIU/mL Normal 0.358-3.[address] [facility] Comment on above: Performed By: #### L IPID, CMP, TSH, T7 #### [facility] [address] [place], [place] [address] Dr. Jason Herrera Vital Signs Date Time Vital Sign Value Performing Clinician Faci lity 10-24-2023 13:16-0500 Blood Pressure Location Luis DAY [facility] 10-24-2023 13:16-0500 Diastolic blood pressure 84 mm[Hg] Luis TINAJEROL [facility] 10-24-2023 13:16-0500 Heart rate 72 /min Luis NILL [facility] 10-24-2023 13:16-0500 Respiratory rate 16 /min Luis NILL [facility] 10-24-2023 13:16-0500 Systolic blood pressure 124 mm[Hg] Luis TINAJEROL [facility] Encounters Encounter Date Encounter Type Care Provider Facility Start: 12-19-2023 End: 12-20-2023 ambulatory Luis DAY Facility:[facility] Start: 12-19-2023 End: 12-19-2023 Patient encounter procedure Luis TINAJEROL [facility] Start: 12-06-2023 End: 12-07-2023 ambulatory Luis R LIORL Facility:[facility] Start: 11-02-2023 End: 11-02-2023 ambulatory AJITH RODRIGUEZ Not Available Start: 10-24-2023 End: 10-25-2023 ambulatory Luis DAY Facility: [facility] Start: 10-24-2023 End: 10-24-2023 Patient encounter procedure Luis DAY [facility] Start: 09-25-2023 Orders Only Selam Thompson FIELD SAMPLING TECHNICIAN-PULVERIZER FEEDER Work Phone: [facility] Comment on above: Encounter for control pills maintenance Start: 09-21-2023 ambulatory Luis ADY Facility:[facility] Start: 09-19-2023 ambulatory Luis DAY Facility:[facility] [place] Start: 01-03-2023 Encounter for genera l adult medical examination without abnormal findings DR VANESSA RUSSELL . [facility] Start: 12-28-2022 End: 12-29-[address] VANESSA RUSSELL . Facility: Start: 12-28-2022 End: 12-29-2022 Encounter for general adult medical examination without abnormal findings DR VANESSA RUSSELL . Facility: Procedures Date Procedure Procedure Detail Performing Clinician Start: 12-06-2023 Colonoscopy Luis THOMSON Start: 03-30-2021 Microscopic observat ion [Identifier] in Cervix by Cyto stain Selam Thompson FIELD SAMPLING TECHNICIAN-PULVERIZER FEEDER Work Phone: None (qualifier value) Braulio TINAJEROPat Plan of Treatment Date Care Activity Detail Author Start: 08-01-2033 DTaP,Tdap and Td Vaccines (7 - Td or Tdap) DTaP,Tdap and Td Vaccines (7 - Td or Tdap) [facility] Start: 08-01-2024 Adult BMI Screening Adult BMI Screen ing [facility] Start: 08-01-2024 Tobacco Screening Tobacco Screening [facility] Start: 03-30-2024 Screening for malign ant neoplasm of cervix Pap Smear [facility] Start: 09-15-2023 Adult BMI Follow Up Plan Adult BMI Follow Up Plan [facility] Start: 04-28-2023 Influenza vaccination Influenza Vacc ine [facility] Start: 2007 Depression Screening Depression Scre ening [facility] Immunizations Immunization Date Immunization Notes Care Provider Fa cilideisy 08-01-2023 tetanus toxoid, reduced diphtheria toxoid, and acellular pertussis vaccine, adsorbed Selam Thompson FIELD SAMPLING TECHNICIAN-PULVERIZER FEEDER Work Phone: [facility] 05-26-2021 influenza virus vaccine, unspecified formulation Selam Thompson FIELD SAMPLING TECHNICIAN-PULVERIZER FEEDER Work Phone: [facility] NEGATED: Highlighted row has not occurred!10-24-2023 influenza virus vaccine, unspecified formulation Luis DAY [facility] [place] Payers Date Payer Category Payer Medicaid [employer] MEDICAID [employer] [facility] MEDICAID [id number] 2022-Present [phone] [address] [address] [place] [address] [id number] 1995 Unknown [id number] 93 1995 Unknown [id number] 1995 Unknown [id number] 27 1995 Unknown [id number] 27 1995 Unknown [id number] 27 1995 Unknown [id number] 27 1959 Private Health Insurance [id number] Social History Date Type Detail Facility Start: 09-15-2022 End: 10-24-2023 Tobacco smoking status NHIS Never smoked tobacco [facility] Start: 09-15-2022 Tobacco use and exposure Smokeless tobacco non-user [facility] Start: 08-01-2023 Alcohol intake Current drinke r of alcohol (finding) [facility] Start: 10-07-2020 End: 08-01-2023 History of Social function [facility] Start: 10-07-2020 End: 08-01-2023 Tobacco use panel [facility] Childcare Unknown [facility] Start: 03-30-2021 Alcohol Comment occasionally [facility] Start: 1995 Sex Assigned At Not on file P [facility] Functional Status Date Assessment Result Facility 10-24-2023 Functional Status N/A [facility] kathy [facility] Clinical Note 10-24-2023 Note Date & Type Note Facility 10-24-2023 Note Chief Complaint consultation for loose stools HPI Staff 27 year old female presents on consultation from Dr. Russell for loose stools. Reports one-two year history [...] vaccine, inactivated - Not Given Patient Refuses [facility] Comment on above: Result Comment: Elec tronically [...] 09/21/23, but cancelled due to insurance being [id number]. Pt has appointment with new Provider, but not until October. Please advise. Thank you RX sent to pharmacy LVM advising RX sent to Pharmacy. documented in this encounter [facility] Telephone encounter Note 09-25-2023 Telephone Encounter - María Cadena - 09/25/2023 3:18 PM EST Note Date & Type Note Facility 09-25-2023 Telephone encount er Note Pt is requesting 1 month BC refill. Pt had Annual appointment scheduled with this Office on 09/21/23, but cancelled due to insurance being [id number]. Pt has appointment with new Provider, but not until October. Please advise. Thank you [facility] Telephone encounter Note 09-25-2023 Telephone Encounter - JOY Pinedo - 09/25/2023 3:18 PM EST Note Date & Type Note Facility 09-25-2023 Telephone encount er Note RX sent to pharmacy [facility] Telephone encounter Note 09-25-2023 Telephone Encounter - María Cadena - 09/25/2023 3:18 PM EST Note Date & Type Note Facility 09-25-2023 Telephone encount er Note LVM advising [facility] Evaluation + Plan note Note Date & Type Note Facility Evaluation + Plan note No data available for this section [facility] [place] Evaluation note Note Date & Type Note Facility Evaluation note Diagnosis Encounter for control pills maintenance Surveillance of previously prescribed contraceptive pill documented in this encounter [facility] Discharge instructions Note Date & Type Note Facility Hospital Discharge instructions No data available for this section [facility] [place] Instructions Note Date & Type Note Facility Instructions Not on filedocumented in this en counter [facility] Progress note Note Date & Type Note Facility Progress note No data available for this section [facility] [place] Summary Purpose Family History No Family History Records Found No data available for this section No Family History Records Found No data available for this section No Family History Records Found Advance Directives No Advanced Directives Records FoundNo Advanced Directives Records FoundNo Advanced Directives Records Found Additional Source Comments INFORMATION SOURCE (unrecogn ized section and content) DATE CREATED AUTHOR 01/04/2023 [facility] DATE CREATED AUTHOR AUTHOR'S ORGANIZ ATION 11/03/[address] [facility] EPIC DATE CREATED AUTHOR AUTHOR'S ORGANIZ ATION 12/20/2023 [facility] Care Teams (unrecognized sec tion and content) Rolfer Relationship Specialty Start Date End Date Vanessa Russell MD [address] [place] [address] PCP - General 08/01/23 FOR RECORDS PERTAINING [...] BE BASED ON THE PRIMARY CLINICAL RECORDS. [employer] provides no warranty or guarantee of the accuracy or completeness of information in this document.
[2024-06-07 08:48] LABS: Amphetamine Screen Urine NEGATIVE (NEGATIVE); Barbiturates Screen Urine NEGATIVE (NEGATIVE); Benzodiazepines Screen Urine NEGATIVE (NEGATIVE); Buprenorphine Screen Urine NEGATIVE (NEGATIVE); Cannabinoid Screen Urine NEGATIVE (NEGATIVE); Cocaine Screen Urine NEGATIVE (NEGATIVE); Methadone Screen Urine NEGATIVE (NEGATIVE); Methamphetamines Screen Urine NEGATIVE (NEGATIVE); Opiate Screen Urine NEGATIVE (NEGATIVE); Oxycodone Screen Urine NEGATIVE (NEGATIVE); Phencyclidine Screen Urine NEGATIVE (NEGATIVE); Tricyclic Antidepressant Urine NEGATIVE (NEGATIVE)
[2024-06-07 08:49] LABS: Basophils Absolute Auto 0.1 10^3/uL (0.0-0.1); Basophils Percent Auto 0.6 % (0.2-2.0); Eosinophils Absolute Auto 0.1 10^3/uL (0.0-0.7); Eosinophils Percent Auto 1.1 % (0.9-7.0); Hematocrit 42.7 % (36.0-48.0); Hemoglobin 14.8 g/dL (12.0-16.0); Immature Granulocytes Abs Auto 0.03 10^3/uL (0.00-0.03); Immature Granulocytes Pct Auto 0.2 % (0.0-0.5); Lymphocytes Absolute Auto 4.3 10^3/uL (1.2-3.8); Lymphocytes Percent Auto 34.7 % (20.5-60.0); Mean Corpuscular HGB Conc 34.7 g/dL (29.9-35.2); Mean Corpuscular Hemoglobin 32.8 pg (26.7-34.0); Mean Corpuscular Volume 94.7 fL (81.0-99.0); Mean Platelet Volume 8.9 fL (9.5-13.5); Monocytes Absolute Auto 0.7 10^3/uL (0.3-0.8); Monocytes Percent Auto 5.6 % (1.7-12.0); Neutrophils Absolute Auto 7.2 10^3/uL (1.4-6.5); Neutrophils Percent Auto 57.8 % (43.0-75.0); Platelet Count 321 10^3/uL (150-450); Red Blood Count 4.51 10^6/uL (4.20-5.40); Red Cell Distribution Width 11.8 % (11.0-15.0); White Blood Count 12.4 10^3/uL (4.0-11.0)
[2024-06-07 09:13] LABS: Estimated Average Glucose 103 mg/dL; Glycohemoglobin A1C 5.2 % (4.5-6.2)
[2024-06-07 09:30] LABS: Anion Gap 16.5; Carbon Dioxide 21.3 mmol/L (21.0-32.0); Chloride 102 mmol/L (98-107); Estimated GFR (African America >60 (>=60 mL/min/1.73m^2); Glucose 93 mg/dL (74-106); Potassium 3.8 mmol/L (3.5-5.1); Sodium 136 mmol/L (136-145)
[2024-06-07 09:31] LABS: Alanine Aminotransferase 28 U/L (14-59); Albumin Globulin Ratio 0.9; Albumin Level 3.6 g/dL (3.4-5.0); Alkaline Phosphatase 54 U/L (46-116); Aspartate Amino Transferase 13 U/L (15-37); BUN Creatinine Ratio 11.9; Bilirubin Total 0.3 mg/dL (0.2-1.0); Calcium 9.1 mg/dL (8.5-10.1); Cholesterol 152 mg/dL (<=200); Estimated GFR (Non-African Ame >60 (>=60 mL/min/1.73m^2); Free T3 3.86 pg/mL (2.18-3.98); Globulin 4.2 g/dL; HDL Cholesterol 38 mg/dL (40-60); Thyroid Stimulating Hormone 2.471 uIU/mL (0.358-3.740); Total Protein 7.8 g/dL (6.4-8.2); Triglycerides 159 mg/dL (<=150); VLDL CHOLESTEROL 31.8 mg/dL
[2024-06-08 03:09] LABS: Insulin 51.8 uIU/mL (2.6-24.9)
== END 2024-06-07 07:58 | disposition home or self-care (01) ==
LOC: LAB 07:58
PROVIDERS: PCP Family Medicine; Visit Provider Family Medicine
DX: Z00.00 Encounter for general adult medical examination without abnormal findings (principal); Z79.899 Other long term (current) drug therapy
CPT/HCPCS: 36415; 80053; 80061; 80307; 83036; 83525; 84436; 84443; 84481; 85025

== ENCOUNTER 2024-10-28 13:29 | Outpatient (OUT) | payer MEDICAID, SELFPAY ==
--- NOTE | 2024-10-28 13:35 | XR_ITS ---
The [address] [address] Patient Name: WILLIAMS MOSELEY MRN: [id number] date: 1995 Sex: F Assigned Patient Location: [facility] Current Patient Location: [facility] Accession/Order Number: [id number] Exam Date: 10/28/2024 17:07 Report Date: 10/28/2024 17:08 At the request of: VANESSA GARCÍA MD Procedure: XR hand LT min 3V LEFT HAND - 3 views REASON FOR EXAM: Chronic left hip pain for 3 months. COMPARISON: None FINDINGS: No focal soft tissue abnormality or acute bony process. Joint spaces appear maintained without bony erosions. XR/XR hand LT min 3V IMPRESSION: NO ACUTE BONY PROCESS. Impression dictated by: James Camacho Jr., D.O.10/28/2024 5:08 PM Dictation Location: [place] [address] Electronically authenticated by: [id number] Y Date: 10/28/2024 17:08
--- OUTSIDE RECORDS SUMMARY | 2024-10-28 13:53 | XMS_ITS | CCD ---
Author Organization [facility] CliniSyor Care Team Providers Care Extension Forester Name Role Phone YVONNE ., DR MENDEZ Attending Unavailable YVONNE ., DR MENDEZ Consulting Unavailable YVONNE ., DR MENDEZ Primary Care Unavailable YVONNE ., DR MENDEZ Admitting Unavailable Vanessa García Primary Care Physician AJITH RODRIGUEZ Attending Unavailable NILL, Luis Grullon Attending Unavailable NILL, Luis Grullon Attending Unavailable NILL, Luis Grullon Attending Unavailable NILL, Luis Grullon Attending Unavailable VANESSA GARCÍA Referring Unavailable VANESSA GARCÍA Primary Care Unavailable Vanessa García MD Primary Care Provider Allergies Allergy Classification Reported Allergen(s) Allergy Type Date of Onset Reaction(s) Facility (1 source) No Known Medication Allergies; Translations: [No Known Medication Allergies] Propensity to adverse reactions (disorder) [facility] Repository Medications Current Medications Medication Drug [...] Classification Problem Date Documented Da te Episodic/Chronic Administrative/social admission (1 source) Encounter for pre-employment examination; Translations: [Encounter for pre-employment examination] Onset: 07-17-2024 Episodic Allergic reactions (2 sources) Eczema 10-09-2023 Episodic Deficiency and other anemia (1 source) [...] mass index (BMI) 40.0-44.9, adult] Onset: 09-15-2022 10-24-2023 Chronic Other nutritional; endocrine; and metabolic disorders (2 sources) Morbid obesity 10-24-2023 Chronic Other upper respiratory disease (2 sources) Seasonal allergic rhinitis 10-09-2023 Chronic Past or Other Problems Problem Classification Problem Date Documented Date Episodic/Chronic Contraceptive and procreative management (1 source) Oral contraception status; Translations: [Encounter for surveillance of contraceptive pills] 09-25-2023 Episodic Unclassified (2 sources) Onset: 09-15-2022 09-15-2022 Results Test Name Value Interpretation Reference Range Facility VZV IgG IA Ql (S)on 07-17-20 24 VARICELLA IgG 3.7 AI High <0.9 [facility] Comment on above: Result Comment: Interpretation-------- <0.9 Negative 0.9 - 1.0 Equivocal >1.0 Positive Performed By: #### 1 5410-4 #### [facility] ([id number]) [address], [address] [place] [address] Ambulatory Visit Summaryon 0 12-19-2023 Ambulatory Visit Summary WILLIAMS MOSELEY :1995 Visit Date:12/19/2023 Ambulatory Visit Instructions Your Diagnosis Irritable bowel syndrome Your Care Team Attending Physician - SHAY GILMORE, Luis Grullon Primary Care Physician - Yvonne GILMORE, Vanessa This Is Your Medications List citalopram (CeleXA [...] for choosing us for your care. Robert Santana [facility] General Surgery Office/Clini c Noteon 12-19-2023 General [...] no anemia, no blood clots, no transfusions. Allergy/Immunologic : no swollen lymph nodes/glands, no IV drug [...] vaccine, inactivated - Not Given Patient Refuses [facility] Comment on above: Result Comment: Elec tronically Signed By: SHAY GILMORE, Luis Grullon\.br\Date and Time Signed: 12/19/23 14:26 EDT Outside Colonoscopyon 2023 Outside Colonoscopy [id number] F3#1.00TIFF [facility] Pathology Noteon 12-08-2023 Pathology Note [id number] FA#1.00TIFF [facility] Lab Reportson 12-06-2023 Lab Reports [id number] C2#1.00TIFF [facility] Insurance Correspondenceon 0 11-27-2023 Insurance Correspondence [id number] 74#1.00TIFF [facility] Consent for Procedure/Surger yon 10-25-2023 Consent for Procedure/Surgery [id number] 782#1.00TIFF [facility] Facesheeton 10-25-2023 Facesheet [id number] 234#1.00TIFF [facility] Ambulatory Visit Summaryon 0 10-24-2023 Ambulatory Visit [...] for choosing us for your care. Normal [facility] Lab Reportson 10-10-2023 Lab Reports [id number] 91#1.00TIFF Normal [facility] Physician Referralon 024 Physician Referral [id number] E6#1.00TIFF Normal [facility] INSULINon 12-30-2022 Insulin 142.0 uIU/mL Critically high 2.6-24.9 [facility] Comment on above: Performed By: #### I NSULIN #### [facility] [address] [place] [address] Dr. Jason Herrera CBC AUTO DIFFon 12-28-2022 BASO # 0.1 103/ul Normal 0.0-0.1 [facility] Comment on above: Performed By: #### C BC #### [facility] [address] [place] [address] Dr. Jason Herrera Basophils/100 WBC (Bld) 0.6 % Normal 0.2-2.0 [facility] Comment on above: Performed By: #### C BC #### [facility] [address] [place] [address] Dr. Jason Herrera EO # 0.1 103/ul Normal 0.0-0.7 [facility] Comment on above: Performed By: #### C BC #### [facility] [address] [place] [address] Dr. Jason Herrera Eosinophils/100 WBC (Bld) 0.6 % Critically low 0.9-7.0 [facility] Comment on above: Performed By: #### C BC #### [facility] [address] [place] [address] Dr. Jason Herrera Erythrocyte distribution width (RBC) [Ratio] 11.9 % Normal 11.0-15.0 [facility] Comment on above: Performed By: #### C BC #### [facility] [address] [place] [address] Dr. Jason Herrera Hematocrit (Bld) [Volume fraction] 42.4 % Normal 36.0-48.0 [facility] Comment on above: Performed By: #### C BC #### [facility] [address] [place] [address] Dr. Jason Herrera Hemoglobin (Bld) [Mass/Vol] 14.5 g/dL Normal 12.0-16.0 [facility] Comment on above: Performed By: #### C BC #### [facility] [address] [place] [address] Dr. Jason Herrera IG # 0.02 10e3/ul Normal 0.00-0.03 [facility] Comment on above: Performed By: #### C BC #### [facility] [address] [place] [address] Dr. Jason Herrera IG % 0.2 % Normal 0.0-0.5 [facility] Comment on above: Performed By: #### C BC #### [facility] [address] [place] [address] Dr. Jason Herrera LYMPH # 3.2 103/ul Normal 1.2-3.8 [facility] Comment on above: Performed By: #### C BC #### [facility] [address] [place] [address] Dr. Jason Herrera Lymphocytes/100 WBC (Bld) 35.7 % Normal 20.5-60.0 [facility] Comment on above: Performed By: #### C BC #### [facility] [address] [place] [address] Dr. Jason Herrera MANUAL DIFF REQ NO Normal [facility] Comment on above: Performed By: #### C BC #### [facility] [address] [place] [address] Dr. Jason Herrera MCH (RBC) [Entitic mass] 32.4 pg Normal 26.7-34.0 [facility] Comment on above: Performed By: #### C BC #### [facility] [address] [place] [address] Dr. Jason Herrera MCHC (RBC) [Mass/Vol] 34.2 g/dL Normal 29.9-35.2 [facility] Comment on above: Performed By: #### C BC #### [facility] [address] [place] [address] Dr. Jason Herrera MCV (RBC) [Entitic vol] 94.9 fL Normal 81.0-99.0 [facility] Comment on above: Performed By: #### C BC #### [facility] [address] [place] [address] Dr. Jason Herrera MONO # 0.4 103/ul Normal 0.3-0.8 [facility] Comment on above: Performed By: #### C BC #### [facility] [address] [place] [address] Dr. Jason Herrera Monocytes/100 WBC (Bld) 4.7 % Normal 1.7-12.0 [facility] Comment on above: Performed By: #### C BC #### [facility] [address] [place] [address] Dr. Jason Herrera NEUT # 5.3 103/ul Normal 1.4-6.5 [facility] Comment on above: Performed By: #### C BC #### [facility] [address] [place] [address] Dr. Jason Herrera Neutrophils/100 WBC (Bld) 58.2 % Normal 43.0-75.0 [facility] Comment on above: Performed By: #### C BC #### [facility] [address] [address] [address] Jason Herrera Platelet mean volume (Bld) [Entitic vol] 8.6 fL Critically low 9.5-13.5 [facility] Comment on above: Performed By: #### C BC #### [facility] [address] [address] [address] Jason Herrera PLT 285 103/ul Normal 150-450 [facility] Comment on above: Performed By: #### C BC #### [facility] [address] [address] [address] Jason Herrera RBC 4.47 106/ul Normal 4.20-5.40 [facility] Comment on above: Performed By: #### C BC #### [facility] [address] [address] [address] Jason Herrera WBC 9.1 103/ul Normal 4.0-11.0 [facility] Comment on above: Performed By: #### C BC #### [facility] [address] [address] [address] Jason Herrera FREE THYROXINE INDEX T7on FTI 3.45 Normal 1.30-4.50 [facility] Comment on above: Performed By: #### L IPID, CMP, TSH, T7 #### [facility] [address] [address] [address] Jason Herrera T3U 29.0 % Critically low 30.0-39.0 [facility] Comment on above: Performed By: #### L IPID, CMP, TSH, T7 #### [facility] [address] [address] [address] Jason Herrera T4 [Mass/Vol] 11.90 ug/dL Normal 4.80-13.90 [facility] Comment on above: Performed By: #### L IPID, CMP, TSH, T7 #### [facility] [address] [address] [address] Jason Herrera GLYCOHEMOGLOBIN A1Con 2022 ADA RECOMMENDATION SEE BELOW Normal [facility] Comment on above: Result Comment: ADA RECOMMENDED LIMIT 4.0 - 6.0 ADA THERAPEUTIC TARGET < 7.0 ACTION SUGGESTED > 7.0 Performed By: #### A 1C #### [facility] [address] [address] [address] Jason Herrera Glucose [Mass/Vol] 105 mg/dL Normal [facility] Comment on above: Performed By: #### A 1C #### [facility] [address] [address] [address] Jason Herrera HbA1c (Bld) [Mass fraction] 5.3 % Normal 4.5-6.2 [facility] Comment on above: Performed By: #### A 1C #### [facility] [address] [place] [address] Dr. Jason Herrera IRONon 12-28-2022 Iron [Mass/Vol] 114.0 ug/dL Normal 50.0-170.0 [facility] Comment on above: Performed By: #### I TARYN #### [facility] [address] [place] [address] Dr. Jason Herrera LIPID PROFILEon 12-28-2022 CHOL-HDL RATIO NORM SEE BELOW Normal [facility] Comment on above: Result Comment: 3.3 - 4.4 LOW RISK 4.4 - 7.1 AVERAGE RISK 7.1 - 11.0 MODERATE RISK >11.0 HIGH RISK Performed By: #### L IPID, CMP, TSH, T7 #### [facility] [address] [address] [address] Jason Herrera Cholesterol [Mass/Vol] 172 mg/dL Normal <=200 [facility] Comment on above: Performed By: #### L IPID, CMP, TSH, T7 #### [facility] [address] [place] [address] Dr. Jason Herrera Cholesterol in HDL [Mass/Vol] 34 mg/dL Critically low 40-60 [facility] Comment on above: Performed By: #### L IPID, CMP, TSH, T7 #### [facility] [address] [place] [address] Dr. Jason Herrera Cholesterol in LDL [Mass/Vol] 105.6 mg/dL Normal [facility] Comment on above: Performed By: #### L IPID, CMP, TSH, T7 #### [facility] [address] [address] [address] Jason Herrera Cholesterol.total/Chol esterol in HDL [Mass ratio] 5.1 {ratio} Normal [facility] Comment on above: Performed By: #### L IPID, CMP, TSH, T7 #### [facility] [address] [address] [address] Jason Herrera HDL NORMAL > or = 60 mg/dl - LOW CARDIOVASCULAR RISK <40 mg/dl - HIGH CARDIOVASCULAR RISK Normal [facility] Comment on above: Performed By: #### L IPID, CMP, TSH, T7 #### [facility] [address] [address] [address] Jason Herrera LDL CALC NORMAL SEE BELOW Normal [facility] Comment on above: Result Comment: <100 mg/dl OPTIMAL 100 - 129 mg/dl NEAR OR ABOVE OPTIMAL 130 - 159 mg/dl BORDERLINE HIGH 160 - 189 mg/dl HIGH >190 mg/dl VERY HIGH Performed By: #### L IPID, CMP, TSH, T7 #### [facility] [address] [address] [address] Jason Herrera Triglyceride [Mass/Vol] 162 mg/dL Critically high <=150 [facility] Comment on above: Performed By: #### L IPID, CMP, TSH, T7 #### [facility] [address] [address] [address] Jason Herrera VLDL CALC 32.4 mg/dL Normal [facility] Comment on above: Performed By: #### L IPID, CMP, TSH, T7 #### [facility] [address] [address] [address] Jason Herrera PROF 14(COMP METB)on 023 Albumin [Mass/Vol] 3.9 g/dL Normal 3.4-5.0 [facility] Comment on above: Performed By: #### L IPID, CMP, TSH, T7 #### [facility] [address] [address] [address] Jason Herrera Albumin/Globulin [Mass ratio] 0.9 {ratio} Normal [facility] Comment on above: Performed By: #### L IPID, CMP, TSH, T7 #### [facility] [address] [address] [address] Jason Herrera ALP [Catalytic activity/Vol] 48 U/L Normal 46-116 [facility] Comment on above: Performed By: #### L IPID, CMP, TSH, T7 #### [facility] [address] [address] [address] Jason Herrera ALT [Catalytic activity/Vol] 58 U/L Normal 14-59 [facility] Comment on above: Performed By: #### L IPID, CMP, TSH, T7 #### [facility] [address] [place] [address] Dr. Jason Herrera Anion gap [Moles/Vol] 12.4 mmol/L Normal [facility] Comment on above: Performed By: #### L IPID, CMP, TSH, T7 #### [facility] [address] [address] [address] Jason Herrera AST [Catalytic activity/Vol] 35 U/L Normal 15-37 [facility] Comment on above: Performed By: #### L IPID, CMP, TSH, T7 #### [facility] [address] [address] [address] Jason Herrera Bilirubin [Mass/Vol] 0.2 mg/dL Normal 0.2-1.0 [facility] Comment on above: Performed By: #### L IPID, CMP, TSH, T7 #### [facility] [address] [address] [address] Jason Herrera Calcium [Mass/Vol] 9.0 mg/dL Normal 8.5-10.1 [facility] Comment on above: Performed By: #### L IPID, CMP, TSH, T7 #### [facility] [address] [address] [address] Jason Herrera Chloride [Moles/Vol] 107 mmol/L Normal 98-107 [facility] Comment on above: Performed By: #### L IPID, CMP, TSH, T7 #### [facility] [address] [address] [address] Jason Herrera CO2 [Moles/Vol] 25.9 mmol/L Normal 21.0-32.0 [facility] Comment on above: Performed By: #### L IPID, CMP, TSH, T7 #### [facility] [address] [place] [address] Dr. Jason Herrera Creatinine [Mass/Vol] 0.72 mg/dL Normal 0.55-1.02 [facility] Comment on above: Performed By: #### L IPID, CMP, TSH, T7 #### [facility] [address] [place] [address] Dr. Jason Herrera EGFR-AF [place] >60 Normal >=60 [facility] Comment on above: Performed By: #### L IPID, CMP, TSH, T7 #### [facility] [address] [place] [address] Dr. Jason Herrera EGFR-NON AF [place] >60 Normal >=60 [facility] Comment on above: Performed By: #### L IPID, CMP, TSH, T7 #### [facility] [address] [place] [address] Dr. Jason Herrera Globulin (S) [Mass/Vol] 4.3 g/dL Normal [facility] Comment on above: Performed By: #### L IPID, CMP, TSH, T7 #### [facility] [address] [place] [address] Dr. Jason Herrera Glucose [Mass/Vol] 103 mg/dL Normal 74-106 [facility] Comment on above: Performed By: #### L IPID, CMP, TSH, T7 #### [facility] [address] [place] [address] Dr. Jason Herrera Potassium [Moles/Vol] 4.3 mmol/L Normal 3.5-5.1 [facility] Comment on above: Performed By: #### L IPID, CMP, TSH, T7 #### [facility] [address] [address] [address] Jason Herrera Protein [Mass/Vol] 8.2 g/dL Normal 6.4-8.2 [facility] Comment on above: Performed By: #### L IPID, CMP, TSH, T7 #### [facility] [address] [place], [place] [address] Dr. Jason Herrera Sodium [Moles/Vol] 141 mmol/L Normal 136-145 [facility] Comment on above: Performed By: #### L IPID, CMP, TSH, T7 #### [facility] [address] [address] [address] Jason Herrera Urea nitrogen [Mass/Vol] 9.0 mg/dL Normal 7.0-18.0 [facility] Comment on above: Performed By: #### L IPID, CMP, TSH, T7 #### [facility] [address] [place] [address] Dr. Jason Herrera Urea nitrogen/Creatinine [Mass ratio] 12.5 mg/mg Normal [facility] Comment on above: Performed By: #### L IPID, CMP, TSH, T7 #### [facility] [address] [address] [address] Jason Herrera TSHon 12-28-2022 TSH 0.365 uIU/mL Normal 0.358-3.740 [facility] Comment on above: Performed By: #### L IPID, CMP, TSH, T7 #### [facility] [address] [place] [address] Dr. Jason Herrera Vital Signs Date Time Vital Sign Value Performing Clinician Magdai david 10-24-2023 13:16-0500 Blood Pressure Location Luis DAY [facility] 10-24-2023 13:16-0500 Diastolic blood pressure 84 mm[Hg] Luis DAY [facility] 10-24-2023 13:16-0500 Heart rate 72 /min Luis DAY [facility] 10-24-2023 13:16-0500 Respiratory rate 16 /min Luis NILL [facility] [place] 10-24-2023 13:16-0500 Systolic blood pressure 124 mm[Hg] Luis NILL [facility] [place] Encounters Encounter Date Encounter Type Care Provider Facility Start: 07-17-2024 End: 07-17-2024 ambulatory VANESSA GARCÍA [facility] Start: 12-19-2023 End: 12-20-2023 ambulatory Luis R NILL Facility:[facility] Start: 12-19-2023 End: 12-19-2023 [facility] [place] Start: 12-06-2023 End: 12-07-2023 ambulatory Luis R NILL Facility:[facility] Start: 11-02-2023 End: 11-02-2023 ambulatory AJITH RODRIGUEZ Not Available Start: 10-24-2023 End: 10-25-2023 ambulatory Luis R NILL Facility:[facility] Start: 10-24-2023 End: 10-24-2023 Patient encounter procedure Luis R NILL [facility] Start: 09-25-2023 Orders Only Selam Thompson PROGRAM ADVISOR-DECORATION CHECKER Work Phone: [facility]ne[facility] Comment on above: Encounter for control pills maintenance Start: 09-21-2023 ambulatory Luis NILL Facility:[facility] Start: 09-19-2023 ambulatory Luis NILL Facility:[facility] Start: 01-03-2023 Encounter for genera l adult medical examination without abnormal findings DR VANESSA GARCÍA . [facility] Start: 12-28-2022 End: 12-29-[address] VANESSA GARCÍA . Facility: Start: 12-28-2022 End: 12-29-2022 Encounter for general adult medical examination without abnormal findings DR VANESSA GARCÍA . Facility:[facility] Procedures Date Procedure Procedure Detail Performing Clinician Start: 12-06-2023 Colonoscopy Luis THOMSON Start: 03-30-2021 Microscopic observat ion [Identifier] in Cervix by Cyto stain Selampetty Mcconnello PROGRAM ADVISOR-DECORATION CHECKER Work Phone: None (qualifier value) Braulio DAY Plan of Treatment Date Care Activity Detail Author Start: 08-01-2033 DTaP,Tdap and Td Vaccines (7 - Td or Tdap) DTaP,Tdap and Td Vaccines (7 - Td or Tdap) [facility] Start: 08-01-2024 Adult BMI Screening Adult BMI Screen ing [facility] Start: 08-01-2024 Tobacco Screening Tobacco Screening [facility] Start: 03-30-2024 Screening for malign ant neoplasm of cervix Pap Smear [facility] Start: 09-15-2023 Adult BMI Follow Up Plan Adult BMI Follow Up Plan [facility] Start: 04-28-2023 Influenza vaccination Influenza Vacc ine [facility] Start: 2007 Depression Screening Depression Scre ening [facility] Immunizations Immunization Date Immunization Notes Care Provider Fa cility 08-01-2023 tetanus toxoid, reduced diphtheria toxoid, and acellular pertussis vaccine, adsorbed Selam Mcconnello PROGRAM ADVISOR-DECORATION CHECKER Work Phone: [facility] 05-26-2021 influenza virus vaccine, unspecified formulation Selam Mcconnello PROGRAM ADVISOR-DECORATION CHECKER Work Phone: [facility] [employer] NEGATED: Highlighted row has not occurred!10-24-2023 influenza virus vaccine, unspecified formulation Luis SHAY [facility] [place] Payers Date Payer Category Payer Medicaid [employer] [place] [id number] 2022-Present [phone] [address] [address] [place] [address] [id number] 1995 Unknown [id number] 93 1995 Unknown [id number] 259 1995 Unknown [id number] 27 1995 Unknown [id number] 27 1995 Unknown [id number] 27 1995 Unknown [id number] [id number] 27 1995 Unknown [id number] 286 1959 Private Health Insurance [id number] Social History Date Type Detail Facility Start: 09-15-2022 End: 10-24-2023 Tobacco smoking status Never smoked tobacco (finding) [facility] [place] Tobacco smoking status Never [facility] [place] Start: 10-07-2020 End: 08-01-2023 Sex Assigned At Female [facility] Start: 09-15-2022 Tobacco use and exposure Smokeless tobacco non-user [facility] Start: 08-01-2023 Alcohol intake Current drinke r of alcohol (finding) [facility] Start: 10-07-2020 End: 08-01-2023 History of Social function [facility] Start: 03-30-2021 Alcohol Comment occasionally [facility] Start: 1995 Sex Assigned At Not on file P [facility] Functional Status Date Assessment Result Facility 10-24-2023 Functional Status N/A [facility] Clinical Note 10-24-2023 Note Date & Type [...] vaccine, inactivated - Not Given Patient Refuses [facility] Comment on above: Result Comment: Elec [...] 09/21/23, but cancelled due to insurance being [id number]. Pt has appointment with new Provider, but not until October. Please advise. Thank you RX sent to pharmacy LVM advising RX sent to Pharmacy. documented in this encounter [facility] Telephone encounter Note 09-25-2023 Telephone Encounter - María Cadena - 09/25/2023 3:18 PM EST Note Date & Type Note Facility 09-25-2023 Telephone encount er Note Pt is requesting 1 month BC refill. Pt had Annual appointment scheduled with this Office on 09/21/23, but cancelled due to insurance being [id number]. Pt has appointment with new Provider, but not until October. Please advise. Thank you [facility] Telephone encounter Note 09-25-2023 Telephone [...] Note LVM [facility] + Plan note Note Date & Type Note Facility Evaluation + Plan note No data available for this section [facility] [place] Evaluation note Note Date & Type Note Facility Evaluation note Diagnosis Encounter for control pills maintenance Surveillance of previously prescribed contraceptive pill documented in this encounter [facility] Hospital Discharge instructions Note Date & Type Note Facility Hospital Discharge instructions No data available for this section [facility] [place] Instructions Note Date & Type Note Facility Instructions Not on filedocumented in this en counter [facility] Progress note Note Date & Type Note Facility Progress note No data available for this section [facility] [place] Summary Purpose Family History No Family History [...] section and content) DATE CREATED AUTHOR 01/04/2023 [facility] pital DATE CREATED AUTHOR AUTHOR'S ORGANIZ ATION 11/03/2023 [facility] EPIC DATE CREATED AUTHOR AUTHOR'S ORGANIZ ATION 12/20/2023 [facility] DATE CREATED AUTHOR AUTHOR'S ORGANIZ ATION 07/20/2024 [facility] Patient Care team informatio n (unrecognized section and content) Extension Forester Relationship Specialty Start Date End Date Vanessa García MD [address] [place] [address] PCP - General 08/01/23 FOR RECORDS PERTAINING [...] BE BASED ON THE PRIMARY CLINICAL RECORDS. [facility]. provides no warranty or guarantee of the accuracy or completeness of information in this document.
== END 2024-10-28 13:30 | disposition home or self-care (01) ==
LOC: RAD 13:30
PROVIDERS: PCP Family Medicine; Visit Provider Family Medicine
DX: M79.642 Pain in left hand (principal)
CPT/HCPCS: 73130

== ENCOUNTER 2024-11-04 20:25 | Outpatient (REF) | payer MEDICAID, SELFPAY ==
--- OUTSIDE RECORDS SUMMARY | 2024-11-04 20:30 | XMS_ITS | CCD ---
Author Organization [facility] Care Team Providers Care Blueprint Blocker Name Role Phone RICKY Stout, DR MENDEZ Attending Unavailable RICKY ., DR MENDEZ Consulting Unavailable RICKY ., DR MENDEZ Primary Care Unavailable RICKY Stout, DR MENDEZ Admitting Unavailable Vanessa Russell Primary Care Physician JANA RODRIGUEZ Attending Unavailable NILL, Luis Grullon Attending Unavailable NILL, Luis Grullon Attending Unavailable NILL, Luis Grullon Attending Unavailable NILL, Luis Grullon Attending Unavailable VANESSA RUSSELL Referring Unavailable VANESSA RUSSELL Primary Care Unavailable Vanessa Russell MD Primary Care Provider [phone] Vanessa Russell MD Primary Care Provider [phone] Allergies Allergy Classification Reported Allergen(s) Allergy Type Date of Onset Reaction(s) Facility (1 source) No Known Medication Allergies; Translations: [No Known Medication Allergies] Propensity to adverse reactions (disorder) [facility] Repository Medications Current Medications Medication Drug Class(es) Dates Sig (Normalized) Sig (Original) ethinyl estradiol 0.02 mg / levonorgestrel 0.1 mg oral tablet (4 sources) Progestin, Estrogen, Progestin-containin g Intrauterine Device Start: 09-03-2024 take 0.1-20 tablets by mouth in the morning levonorgestrel-e thinyl estradiol (Aviane, Alesse, Lessina) 0.1-20 MG-MCG tablet Indications: Uses control Take 1 tablet by mouth in the morning. 28 tablet 12 09/03/2024 Active Start: 09-25-2023 take 1 tablet by cynthia th once in the morning levonorgestreL-ethinyl estrad (AVIANE,ALESSE,LESSINA) [...] (Reorder) hydrOXYzine hydrochloride 25 mg oral tablet (5 sources) Antihistamine Start: 10-19-2023 take 1 tablet by mouth once hydrOXYzine HCl (Atarax) 25 MG tablet Take 25 mg by mouth 1 (one) time 10/19/2023 Active Start: 10-09-2023 take 1 tablet by cynthia th every eight hours as needed Start: 08-12-2022 hydrOXYzine (A TARAX) 25 mg tablet TAKE 1 TABLET BY MOUTH EVERY 6 TO 8 HOURS 0 08/12/2022 Active Completed/Discontinued Medications Medication Drug Class(es) Dates Sig (Normalized) Sig (Original) citalopram 10 mg oral tablet (5 sources) Serotonin Reuptake Inhibitor Start: 12-27-2022 take 1 tablet by mouth once daily Problems Active Problems Problem Classification Problem Date [...] Facility VZV IgG IA Ql (S)on 07-17-20 VARICELLA IgG 3.7 AI High <0.9 [facility] Comment on above: Result Comment: Interpretation-------- <0.9 Negative 0.9 - 1.0 Equivocal >1.0 Positive Performed By: #### 1 5410-4 #### [facility] ([id number]) [address] [place] [address], [address] [place] [address] Ambulatory Visit Summaryon 0 12-19-2023 Ambulatory Visit Summary ROMARIO MOSELEY :1995 Visit Date:12/19/2023 Ambulatory Visit Instructions [...] choosing us for your care. Normal Santana [facility] General Surgery Office/Clini c Noteon 12-19-2023 [...] vaccine, inactivated - Not Given Patient Refuses [facility] Comment on above: Result Comment: Elec tronically Signed By: SHAY GILMORE, Luis Arnold\Date and Time Signed: 12/19/23 14:26 EDT Outside Colonoscopyon 2023 Outside Colonoscopy [id number] F3#1.00TIFF [facility] Pathology Noteon 12-08-2023 Pathology Note [id number] FA#1.00TIFF [facility] Lab Reportson 12-06-2023 Lab Reports [id number] C2#1.00TIFF [facility] Insurance Correspondenceon 0 11-27-2023 Insurance Correspondence [id number] 74#1.00TIFF [facility] Consent for Procedure/Surger yon 10-25-2023 Consent for Procedure/Surgery [id number] 782#1.00TIFF [facility] Facesheeton 10-25-2023 Facesheet [id number] 234#1.00TIFF Normal [facility] Ambulatory Visit Summaryon 0 10-24-2023 Ambulatory Visit Summary ROMARIO MOSELEY :1995 Visit Date:10/24/2023 Ambulatory Visit Instructions [...] for choosing us for your care. Normal [facility] Lab Reportson 10-10-2023 Lab Reports [id number] 91#1.00TIFF Normal [facility] Physician Referralon 024 Physician Referral [id number] E6#1.00TIFF Normal [facility] INSULINon 12-30-2022 Insulin 142.0 uIU/mL Critically high 2.6-24.9 [facility] Comment on above: Performed By: #### I NSULIN #### [facility] [address] [place] [address] Dr. Jason Herrera CBC AUTO DIFFon 12-28-2022 BASO # 0.1 103/ul Normal 0.0-0.1 [facility] Comment on above: Performed By: #### C BC #### [facility] [address] [place] [address] Dr. Jason Herrera Basophils/100 WBC (Bld) 0.6 % Normal 0.2-2.0 [facility] Comment on above: Performed By: #### C BC #### [facility] [address] [place] [address] Dr. Jason Herrera EO # 0.1 103/ul Normal 0.0-0.7 [facility] Comment on above: Performed By: #### C BC #### [facility] [address] [place] [address] Dr. Jason Herrera Eosinophils/100 WBC (Bld) 0.6 % Critically low 0.9-7.0 [facility] Comment on above: Performed By: #### C BC #### [facility] [address] [place] [address] Dr. Jason Herrera Erythrocyte distribution width (RBC) [Ratio] 11.9 % Normal 11.0-15.0 [facility] Comment on above: Performed By: #### C BC #### [facility] [address] [place] [address] Dr. Jason Herrera Hematocrit (Bld) [Volume fraction] 42.4 % Normal 36.0-48.0 [facility] Comment on above: Performed By: #### C BC #### [facility] [address] [place] [address] Dr. Jason Herrera Hemoglobin (Bld) [Mass/Vol] 14.5 g/dL Normal 12.0-16.0 [facility] Comment on above: Performed By: #### C BC #### [facility] [address] [place] [address] Dr. Jason Herrera IG # 0.02 10e3/ul Normal 0.00-0.03 [facility] Comment on above: Performed By: #### C BC #### [facility] [address] [place] [address] Dr. Jason Herrera IG % 0.2 % Normal 0.0-0.5 [facility] Comment on above: Performed By: #### C BC #### [facility] [address] [place] [address] Dr. Jason Herrera LYMPH # 3.2 103/ul Normal 1.2-3.8 [facility] Comment on above: Performed By: #### C BC #### [facility] [address] [place] [address] Dr. Jason Herrera Lymphocytes/100 WBC (Bld) 35.7 % Normal 20.5-60.0 [facility] Comment on above: Performed By: #### C BC #### [facility] [address] [place] [address] Dr. Jason Herrera MANUAL DIFF REQ NO Normal [facility] Comment on above: Performed By: #### C BC #### [facility] [address] [place] [address] Dr. Jason Herrera MCH (RBC) [Entitic mass] 32.4 pg Normal 26.7-34.0 [facility] Comment on above: Performed By: #### C BC #### [facility] [address] [place] [address] Dr. Jason Herrera MCHC (RBC) [Mass/Vol] 34.2 g/dL Normal 29.9-35.2 [facility] Comment on above: Performed By: #### C BC #### [facility] [address] [place] [address] Dr. Jason Herrera MCV (RBC) [Entitic vol] 94.9 fL Normal 81.0-99.0 [facility] Comment on above: Performed By: #### C BC #### [facility] [address] [place] [address] Dr. Jason Herrera MONO # 0.4 103/ul Normal 0.3-0.8 [facility] Comment on above: Performed By: #### C BC #### [facility] [address] [place] [address] Dr. Jason Herrera Monocytes/100 WBC (Bld) 4.7 % Normal 1.7-12.0 [facility] Comment on above: Performed By: #### C BC #### [facility] [address] [place] [address] Dr. Jason Herrera NEUT # 5.3 103/ul Normal 1.4-6.5 [facility] Comment on above: Performed By: #### C BC #### [facility] [address] [place] [address] Dr. Jason Herrera Neutrophils/100 WBC (Bld) 58.2 % Normal 43.0-75.0 [facility] Comment on above: Performed By: #### C BC #### [facility] [address] [place] [address] Dr. Jason Herrera Platelet mean volume (Bld) [Entitic vol] 8.6 fL Critically low 9.5-13.5 [facility] Comment on above: Performed By: #### C BC #### [facility] [address] [place] [address] Dr. Jason Herrera PLT 285 103/ul Normal 150-450 [facility] Comment on above: Performed By: #### C BC #### [facility] [address] [place] [address] Dr. Jason Herrera RBC 4.47 106/ul Normal 4.20-5.40 [facility] Comment on above: Performed By: #### C BC #### [facility] [address] [place] [address] Dr. Jason Herrera WBC 9.1 103/ul Normal 4.0-11.0 [facility] Comment on above: Performed By: #### C BC #### [facility] [address] [place] [address] Dr. Jason Herrera FREE THYROXINE INDEX T7on FTI 3.45 Normal 1.30-4.50 [facility] Comment on above: Performed By: #### L IPID, CMP, TSH, T7 #### [facility] [address] [place], [place] [id number] Dr. Jason Herrera T3U 29.0 % Critically low 30.0-39.[address] [facility] Comment on above: Performed By: #### L IPID, CMP, TSH, T7 #### [facility] [address] [place] [address] Dr. Jason Herrera T4 [Mass/Vol] 11.90 ug/dL Normal 4.80-13.[address] [facility] Comment on above: Performed By: #### L IPID, CMP, TSH, T7 #### [facility] [address] [place] [address] Dr. Jason Herrera GLYCOHEMOGLOBIN A1Con 2022 ADA RECOMMENDATION SEE BELOW Normal [facility] Comment on above: Result Comment: ADA RECOMMENDED LIMIT 4.0 - 6.0 ADA THERAPEUTIC TARGET < 7.0 ACTION SUGGESTED > 7.0 Performed By: #### A 1C #### [facility] [address] [place] [address] Dr. Jason Herrera Glucose [Mass/Vol] 105 mg/dL Normal [facility] Comment on above: Performed By: #### A 1C #### [facility] [address] [place] [address] Dr. Jason Herrera HbA1c (Bld) [Mass fraction] 5.3 % Normal 4.5-6.2 [facility] Comment on above: Performed By: #### A 1C #### [facility] [address] [place] [address] Dr. Jason Herrera IRONon 12-28-2022 Iron [Mass/Vol] 114.0 ug/dL Normal 50.0-170.0 [facility] Comment on above: Performed By: #### I TARYN #### [facility] [address] [place] [address] Dr. Jsaon Herrera LIPID PROFILEon 12-28-2022 CHOL-HDL RATIO NORM SEE BELOW Normal [facility] Comment on above: Result Comment: 3.3 - 4.4 LOW RISK 4.4 - 7.1 AVERAGE RISK 7.1 - 11.0 MODERATE RISK >11.0 HIGH RISK Performed By: #### L IPID, CMP, TSH, T7 #### [facility] [address] [address] [address] Jason Herrera Cholesterol [Mass/Vol] 172 mg/dL Normal <=200 [facility] Comment on above: Performed By: #### L IPID, CMP, TSH, T7 #### [facility] [address] [address] [address] Jason Herrera Cholesterol in HDL [Mass/Vol] 34 mg/dL Critically low 40-60 [facility] Comment on above: Performed By: #### L IPID, CMP, TSH, T7 #### [facility] [address] [address] [address] Jason Herrera Cholesterol in LDL [Mass/Vol] 105.6 mg/dL Normal [facility] Comment on above: Performed By: #### L IPID, CMP, TSH, T7 #### [facility] [address] [address] [address] Jason Herrera Cholesterol.total/Chol esterol in HDL [Mass ratio] 5.1 {ratio} Normal [facility] Comment on above: Performed By: #### L IPID, CMP, TSH, T7 #### [facility] [address] [address] [address] Jason Herrera HDL NORMAL > or = 60 mg/dl - LOW CARDIOVASCULAR RISK <40 mg/dl - HIGH CARDIOVASCULAR RISK Normal [facility] Comment on above: Performed By: #### L IPID, CMP, TSH, T7 #### [facility] [address] [address] [address] Jason Herrera LDL CALC NORMAL SEE BELOW Normal [facility] Comment on above: Result Comment: <100 mg/dl OPTIMAL 100 - 129 mg/dl NEAR OR ABOVE OPTIMAL 130 - 159 mg/dl BORDERLINE HIGH 160 - 189 mg/dl HIGH >190 mg/dl VERY HIGH Performed By: #### L IPID, CMP, TSH, T7 #### [facility] [address] [address] [address] Jason Herrera Triglyceride [Mass/Vol] 162 mg/dL Critically high <=150 [facility] Comment on above: Performed By: #### L IPID, CMP, TSH, T7 #### [facility] [address] [place] [address] Dr. Jason Herrera VLDL CALC 32.4 mg/dL Normal [facility] Comment on above: Performed By: #### L IPID, CMP, TSH, T7 #### [facility] [address] [place] [address] Dr. Jason Herrera PROF 14(COMP METB)on 023 Albumin [Mass/Vol] 3.9 g/dL Normal 3.4-5.0 [facility] Comment on above: Performed By: #### L IPID, CMP, TSH, T7 #### [facility] [address] [place] [address] Dr. Jason Herrera Albumin/Globulin [Mass ratio] 0.9 {ratio} Normal [facility] Comment on above: Performed By: #### L IPID, CMP, TSH, T7 #### [facility] [address] [place] [address] Dr. Jason Herrera ALP [Catalytic activity/Vol] 48 U/L Normal 46-116 [facility] Comment on above: Performed By: #### L IPID, CMP, TSH, T7 #### [facility] [address] [place] [address] Dr. Jason Herrera ALT [Catalytic activity/Vol] 58 U/L Normal 14-59 [facility] Comment on above: Performed By: #### L IPID, CMP, TSH, T7 #### [facility] [address] [place] [address] Dr. Jason Herrera Anion gap [Moles/Vol] 12.4 mmol/L Normal [facility] Comment on above: Performed By: #### L IPID, CMP, TSH, T7 #### [facility] [address] [place] [address] Dr. Jason Herrera AST [Catalytic activity/Vol] 35 U/L Normal 15-37 [facility] Comment on above: Performed By: #### L IPID, CMP, TSH, T7 #### [facility] [address] [place] [address] Dr. Jason Herrera Bilirubin [Mass/Vol] 0.2 mg/dL Normal 0.2-1.0 [facility] Comment on above: Performed By: #### L IPID, CMP, TSH, T7 #### [facility] [address] [address] [address] Jason Herrera Calcium [Mass/Vol] 9.0 mg/dL Normal 8.5-10.1 [facility] Comment on above: Performed By: #### L IPID, CMP, TSH, T7 #### [facility] [address] [place] [address] Dr. Jason Herrera Chloride [Moles/Vol] 107 mmol/L Normal 98-107 [facility] Comment on above: Performed By: #### L IPID, CMP, TSH, T7 #### [facility] [address] [place] [address] Dr. Jason Herrera CO2 [Moles/Vol] 25.9 mmol/L Normal 21.0-32.0 [facility] Comment on above: Performed By: #### L IPID, CMP, TSH, T7 #### [facility] [address] [place] [address] Dr. Jason Herrera Creatinine [Mass/Vol] 0.72 mg/dL Normal 0.55-1.02 [facility] Comment on above: Performed By: #### L IPID, CMP, TSH, T7 #### [facility] [address] [place] [address] Dr. Jason Herrera EGFR-AF THAI >60 Normal >=60 [facility] Comment on above: Performed By: #### L IPID, CMP, TSH, T7 #### [facility] [address] [place] [address] Dr. Jason Herrera EGFR-NON AF THAI >60 Normal >=60 [facility] Comment on above: Performed By: #### L IPID, CMP, TSH, T7 #### [facility] [address] [address] [address] Jason Herrera Globulin (S) [Mass/Vol] 4.3 g/dL Normal [facility] Comment on above: Performed By: #### L IPID, CMP, TSH, T7 #### [facility] [address] [address] [address] Jason Herrera Glucose [Mass/Vol] 103 mg/dL Normal 74-106 [facility] Comment on above: Performed By: #### L IPID, CMP, TSH, T7 #### [facility] [address] [place] [address] Dr. Jason Herrera Potassium [Moles/Vol] 4.3 mmol/L Normal 3.5-5.1 [facility] Comment on above: Performed By: #### L IPID, CMP, TSH, T7 #### [facility] [address] [address] [address] Jason Herrera Protein [Mass/Vol] 8.2 g/dL Normal 6.4-8.2 [facility] Comment on above: Performed By: #### L IPID, CMP, TSH, T7 #### [facility] [address] [place] [address] Dr. Jason Herrera Sodium [Moles/Vol] 141 mmol/L Normal 136-145 [facility] Comment on above: Performed By: #### L IPID, CMP, TSH, T7 #### [facility] [address] [place] [address] Dr. Jason Herrera Urea nitrogen [Mass/Vol] 9.0 mg/dL Normal 7.0-18.0 [facility] Comment on above: Performed By: #### L IPID, CMP, TSH, T7 #### [facility] [address] [place] [address] Dr. Jason Herrera Urea nitrogen/Creatinine [Mass ratio] 12.5 mg/mg Normal [facility] Comment on above: Performed By: #### L IPID, CMP, TSH, T7 #### [facility] [address] [place] [address] Dr. Jason Herrera TSHon 12-28-2022 TSH 0.365 uIU/mL Normal 0.358-3.740 [facility] Comment on above: Performed By: #### L IPID, CMP, TSH, T7 #### [facility] [address] [address] [address] Jason Herrera Vital Signs Date Time Vital Sign Value Performing Clinician Rafy hernandez 10-24-2023 13:16-0500 Blood Pressure Location Luis NILL [facility] [place] 10-24-2023 13:16-0500 Diastolic blood pressure 84 mm[Hg] Luis NILL [facility] [place] 10-24-2023 13:16-0500 Heart rate 72 /min Luis NILL [facility] 10-24-2023 13:16-0500 Respiratory rate 16 /min Luis NILL [facility] [place] 10-24-2023 13:16-0500 Systolic blood pressure 124 mm[Hg] Luis NILL [facility] Encounters Encounter Date Encounter Type Care Provider Facility Start: 11-04-2024 End: 11-04-2024 Bamboo flowsheet Jana DAIGLE Work Phone: [facility] Start: 11-04-2024 End: 11-04-2024 Bamboo flowsheet Jana DAIGLE Work Phone: [facility] Start: 07-17-2024 End: 07-17-2024 ambulatory [facility] Start: 12-19-2023 End: 12-20-2023 ambulatory Luis R NILL Facility:[facility] Start: 12-19-2023 End: 12-19-2023 Patient encounter procedure Luis R NILL [facility] Start: 12-06-2023 End: 12-07-2023 ambulatory Luis R NILL Facility:[facility] Start: 11-02-2023 End: 11-02-2023 ambulatory JANA RODRIGUEZ Not Available Start: 10-24-2023 End: 10-25-2023 ambulatory Luis R NILL Facility:[facility] Start: 10-24-2023 End: 10-24-2023 Patient encounter procedure Luis Grullon [facility] Start: 09-25-2023 Orders Only Selam M Jay [employer] Work Phone: [facility] Comment on above: Encounter for control pills maintenance Start: 09-21-2023 ambulatory Luis DAY Facility:[facility] Start: 09-19-2023 ambulatory Luis DAY Facility:[facility] Start: 01-03-2023 Encounter for genera l adult medical examination without abnormal findings DR VANESSA RUSSELL . [facility] Start: 12-28-2022 End: 12-29-[address] VANESSA RUSSELL . Facility: Start: 12-28-2022 End: 12-29-2022 Encounter for general adult medical examination without abnormal findings DR VANESSA RUSSELL . Facility: Procedures Date Procedure Procedure Detail Performing Clinician Start: 12-06-2023 Colonoscopy Luis NI LL Start: 03-30-2021 Microscopic observat ion [Identifier] in Cervix by Cyto stain Selam Thompson [employer] Work Phone: None (qualifier value) Braulio DAY Plan of Treatment Date Care Activity Detail Author Start: 08-01-2033 DTaP,Tdap and Td Vaccines (7 - Td or Tdap) DTaP,Tdap and Td Vaccines (7 - Td or Tdap) [facility] Start: 11-04-2024 End: 11-04-2024 Patient encounter procedure 11/04/2024 2:00 PM EDT Office Visit [facility] [address] [place] [address] Jana Rodriguez PA [address], [place] [id number] Arrived [facility] Comment on above: Arrived Start: 08-01-2024 Adult BMI Screening Adult BMI Screen ing [facility] Start: 08-01-2024 Tobacco Screening Tobacco Screening [facility] Start: 03-30-2024 Screening for malign ant neoplasm of cervix Pap Smear [facility] Start: 09-15-2023 Adult BMI Follow Up Plan Adult BMI Follow Up Plan [facility] Start: 04-28-2023 Influenza vaccination Influenza Vacc ine [facility] Start: 2007 Depression Screening Depression Scre ening [facility] Immunizations Immunization Date Immunization Notes Care Provider Fa cility 08-01-2023 tetanus toxoid, reduced diphtheria toxoid, and acellular pertussis vaccine, adsorbed Selam Jay [employer] Work Phone: [facility] 05-26-2021 influenza virus vaccine, unspecified formulation Selam Jay [employer] Work Phone: [facility] NEGATED: Highlighted row has not occurred!10-24-2023 influenza virus vaccine, unspecified formulation Luis SHAY [facility] [place] Payers Date Payer Category Payer Medicaid [id number] 1995 Unknown [id number] [id number] [id number] 1995 Unknown [id number] 2.16.84 [id number] 1995 Unknown [id number] 2.16.8 [id number] 1995 Unknown [id number] 2.16.8 [id number] 1995 Unknown [id number] 2.16.8 [id number] 1995 Unknown [id number] 2.16.8 [id number] 1995 Unknown [id number] 2.16.8 [id number] 1959 Private Health Insurance [id number] Social History Date Type Detail Facility Start: 09-15-2022 End: 10-24-2023 Tobacco smoking status Never smoked tobacco (finding) [facility] [place] Tobacco smoking status Never [facility] [place] Start: 10-07-2020 End: 08-01-2023 Sex Assigned At Female [facility] Start: 09-15-2022 Tobacco use and exposure Smokeless tobacco non-user [facility] Start: 08-01-2023 Alcohol intake Current drinke r of alcohol (finding) [facility] Start: 10-07-2020 End: 08-01-2023 History of Social function [facility] Start: 03-30-2021 Alcohol Comment occasionally [facility] Start: 1995 Sex Assigned At Not on file [facility] Tobacco smoking status MOIS Tobacco smoking consumption unknown [facility] Functional Status Date Assessment Result Facility 10-24-2023 Functional Status N/A [facility] [place] Clinical Note 10-24-2023 Note Date & Type [...] vaccine, inactivated - Not Given Patient Refuses [facility] Comment on above: Result Comment: Elec tronically Signed By: SHAY GILMORE, Luis Carroll.[email or web address]\Date and Time Signed: 10/24/23 13:56 EST Note [...] 09/21/23, but cancelled due to insurance being [id number]. Pt has appointment with new Provider, but not until October. Please advise. Thank you RX sent to pharmacy LVM advising RX sent to Pharmacy. [facility] Note 09-25-2023 Telephone Encounter - María Cadena - 09/25/2023 3:18 PM EST Note Date & Type Note Facility 09-25-2023 Telephone encount er Note Pt is requesting 1 month BC refill. Pt had Annual appointment scheduled with this Office on 09/21/23, but cancelled due to insurance being [id number]. Pt has appointment with new Provider, but not until October. Please advise. Thank you [facility] Telephone encounter Note 09-25-2023 Telephone Encounter - JOY Pinedo - 09/25/2023 3:18 PM EST Note Date & Type Note Facility 09-25-2023 Telephone encount er Note RX sent to pharmacy [facility] Telephone encounter Note 09-25-2023 Telephone Encounter - María Cadena - 09/25/2023 3:18 PM EST Note Date & Type Note Facility 09-25-2023 Telephone encount er Note LVM advising RX sent to Pharmacy. [facility] Evaluation + Plan note Note Date & Type Note Facility Evaluation + Plan note No data available for this section [facility] [place] Evaluation note Note Date & Type Note Facility Evaluation note Diagnosis Encounter for control pills maintenance Surveillance of previously prescribed contraceptive pill documented in this encounter [facility] Hospital Discharge instructions Note Date & Type Note Facility Hospital Discharge instructions No data available for this section [facility] [place] Instructions Note Date & Type Note Facility Instructions Not on filedocumented in this en counter [facility] Progress note Note Date & Type Note Facility Progress note No data available for this section General Surgery [place] Summary Purpose Family History No Family History [...] and content) DATE CREATED AUTHOR 01/04/2023 [facility] [place] DATE CREATED AUTHOR AUTHOR'S ORGANIZ ATION 11/03/2023 [facility] EPIC DATE CREATED AUTHOR AUTHOR'S ORGANIZ ATION 12/20/2023 [facility] DATE CREATED AUTHOR AUTHOR'S ORGANIZ ATION 07/20/2024 [facility] Patient Care team informatio n (unrecognized section and content) [employer] Relationship Specialty Start Date End Date Vanessa Russell MD [address] [place] [address] PCP - General 08/01/23 [employer] Relationship Specialty Start Date End Date Vanessa Russell MD [address] [place] [address] PCP - General Family Medicine 11/02/23 FOR RECORDS PERTAINING TO PATIENTS WHO ARE [...] BE BASED ON THE PRIMARY CLINICAL RECORDS. [facility] [employer] [facility]. provides no warranty or guarantee of the accuracy or completeness of information in this document.
[2024-11-11 14:08] LABS: Age Gdln ACOG Testing Note (.); IGP, rfx Aptima HPV ASCU Note (.)
== END 2024-11-04 20:26 | disposition home or self-care (01) ==
LOC: LAB 20:25
PROVIDERS: PCP Family Medicine; Visit Provider Physician Assistant
DX: Z01.419 Encounter for gynecological examination (general) (routine) without abnormal findings (principal)
CPT/HCPCS: 88175